=== PATIENT | female | born 1950 | race Caucasian/White ===

== ENCOUNTER 2018-11-07 11:52 | Day surgery (SDC) ==
[2018-11-04 11:35] LABS: HEMOGLOBIN 10.2 g/dL (12.0-16.0); MCH 29.7 PG (27-31); MCHC 31.9 g/dL (33-37); MCV 93.3 FL (81-99); MPV 11.5 FL (7.4-10.4); RBC 3.43 XMIL (4.2-5.4); RDW 14.1 % (11.5-14.5); WBC 8.15 X1000 (4.8-10.8)
[2018-11-04 11:44] LABS: INR 1.38; PROTIME 18.1 Seconds (11.0-16.0)
[2018-11-04 11:45] LABS: PTT 30.1 Seconds (22.3-41.8)
[2018-11-04 12:05] LABS: CALCIUM 8.8 mg/dL (8.8-10.2); CREATININE 1.3 mg/dL (0.5-0.9); POTASSIUM 4.6 mmol/L (3.5-5.1)
[2018-11-07] MEDS ORDERED: LR 500 ML ONE (12:19)
[2018-11-07] MEDS ORDERED: KEFZOL 1 GM/D5W 2 GM/100 ML IVPB ONE (12:19)
[2018-11-07] MEDS ORDERED: PEPCID ONE (12:19)
[2018-11-07] MEDS: REGLAN ONE ×2 (12:27→22:16)
[2018-11-07] MEDS ORDERED: DIPRIVAN 1% ONE (12:37)
[2018-11-07] MEDS ORDERED: QUELICIN (DOSE) ONE (12:37)
[2018-11-07] MEDS ORDERED: XYLOCAINE-MPF 2% ONE ×2 (12:37→14:11)
[2018-11-07] MEDS ORDERED: ROBINUL ONE ×2 (12:38→16:55)
[2018-11-07] MEDS ORDERED: NORCURON ONE (12:38)
[2018-11-07] MEDS ORDERED: AMIDATE ONE (14:12)
[2018-11-07] MEDS ORDERED: VENTOLIN HFA ONE (14:39)
[2018-11-07] MEDS ORDERED: EPHEDRINE ONE (15:02)
[2018-11-07] MEDS ORDERED: OFIRMEV 1000 MG/ISOTONIC SOLN 1,000 MG/100 ML BOTTLE ONE (15:43)
[2018-11-07] MEDS ORDERED: NS 1,000 ML ONE (17:41)
--- NOTE | 2018-11-07 17:44 | Diag Imaging Result Doc PS360 ---
EXAM: CHEST-PORTABLE INDICATION: s/p nephrolithotomy TECHNIQUE: One view COMPARISON: 06/04/2017 FINDINGS: The left chest port is in stable position. There are interstitial infiltrates at the mid and lower lung zones bilaterally suggesting interstitial edema. There is no discrete pleural fluid collection or pneumothorax. There are stable CABG changes. The cardiac silhouette is prominent suggesting cardiomegaly. IMPRESSION: Interstitial infiltrates bilaterally most consistent with pulmonary edema. Electronically signed by Erik Levin 11/07/2018 5:42 PM
[2018-11-07 18:01] LABS: BASO# 0.02 X1000 (0.0-0.2); BASO% 0.4 % (0.0-0.8); EOS# 0.12 X1000 (0.0-0.7); EOS% 2.2 % (0.0-10.0); HEMATOCRIT 29.2 % (37.0-47.0); HEMOGLOBIN 9.1 g/dL (12.0-16.0); LYMPH# 1.15 X1000 (1.2-3.4); LYMPH% 20.8 % (20.5-51.1); MCH 29.4 PG (27-31); MCHC 31.2 g/dL (33-37); MCV 94.5 FL (81-99); MONO# 0.45 X1000 (0.11-0.59); MONO% 8.1 % (1.7-9.3); MPV 10.6 FL (7.4-10.4); NEUT# 3.79 X1000 (1.4-6.5); NEUT% 68.5 % (42.2-75.2); PLT 181 X1000 (130-400); RBC 3.09 XMIL (4.2-5.4); RDW 14.2 % (11.5-14.5); WBC 5.53 X1000 (4.8-10.8)
[2018-11-07 18:09] LABS: CALCIUM 8.8 mg/dL (8.8-10.2); CREATININE 1.3 mg/dL (0.5-0.9); POTASSIUM 4.8 mmol/L (3.5-5.1)
[2018-11-07] MEDS ORDERED: MORPHINE IV PRN (19:01)
[2018-11-07] MEDS ORDERED: DITROPAN PO PRN (19:15)
[2018-11-07] MEDS ORDERED: DILAUDID IV PRN (19:15)
[2018-11-07] MEDS ORDERED: OFIRMEV 1000 MG/ISOTONIC SOLN 1,000 MG/100 ML BOTTLE IV PRN (19:15)
[2018-11-07] MEDS ORDERED: NORCO-7.5 PO PRN (19:15)
[2018-11-07] MEDS ORDERED: LABETALOL IV PRN (19:15)
[2018-11-07] MEDS ORDERED: NORCO-5 PO PRN (19:15)
[2018-11-07] MEDS ORDERED: PHENERGAN PO PRN (19:15)
[2018-11-07] MEDS ORDERED: ZOFRAN IV PRN (19:15)
[2018-11-07] MEDS ORDERED: PHENERGAN PR PRN (19:15)
[2018-11-07] MEDS ORDERED: PHENERGAN IV PRN (19:15)
[2018-11-07] MEDS ORDERED: SODIUM CHLORIDE 0.9% INJ PRN (19:15)
[2018-11-07] MEDS ORDERED: NORCO-10 PO PRN (19:15)
[2018-11-07] MEDS ORDERED: VENTOLIN HFA INH PRN (19:31)
[2018-11-07] MEDS ORDERED: TYLENOL ARTHRITIS PO PRN (19:31)
[2018-11-07] MEDS ORDERED: XANAX PO PRN (19:31)
[2018-11-07] MEDS ORDERED: LIORESAL PO PRN (19:31)
[2018-11-07] MEDS ORDERED: NITROGLYCERIN SL PRN (19:31)
[2018-11-07] MEDS ORDERED: LASIX PO SCH (19:45)
[2018-11-07] MEDS: CALTRATE 600 PO SCH (20:36)
[2018-11-07] MEDS: KLOR-CON PO SCH (20:36)
[2018-11-07] MEDS: COLACE PO SCH (20:36)
[2018-11-07] MEDS: PERIDEX MT SCH (20:37)
[2018-11-07] MEDS: LOPRESSOR PO SCH (20:37)
[2018-11-07] MEDS ORDERED: ALBUTEROL NEB INH SCH (21:00)
[2018-11-07] MEDS ORDERED: LIPITOR PO SCH (21:00)
[2018-11-07] MEDS: KEFZOL 2 GM/D5W 2 GM/50 ML IVPB IV SCH (22:15)
[2018-11-07] MEDS: NS 1,000 ML IV SCH (22:17)
[2018-11-07] MEDS ORDERED: KEFZOL 2 GM/D5W 2 GM/50 ML IVPB IV SCH ×2 (22:30)
[2018-11-08] MEDS: KEFZOL 2 GM/D5W 2 GM/50 ML IVPB IV SCH ×2 (06:33→14:24)
[2018-11-08 06:50] LABS: HEMOGLOBIN 8.2 g/dL (12.0-16.0); MCH 29.7 PG (27-31); MCHC 30.4 g/dL (33-37); MCV 97.8 FL (81-99); RBC 2.76 XMIL (4.2-5.4); RDW 14.7 % (11.5-14.5); WBC 10.19 X1000 (4.8-10.8)
[2018-11-08] MEDS ORDERED: SYNTHROID PO SCH (07:00)
[2018-11-08] MEDS ORDERED: PROTONIX PO SCH (07:00)
[2018-11-08 07:11] LABS: CREATININE 1.5 mg/dL (0.5-0.9); POTASSIUM 5.1 mmol/L (3.5-5.1)
[2018-11-08] MEDS: NS 1,000 ML IV SCH (08:26)
--- NOTE | 2018-11-08 08:27 | PROGRESS NOTE ---
DATE: 11/08/2018 SUBJECTIVE: Ms. Shi reports she had a decent night overnight. She has had a headache this morning. She also reports she has had some breakthrough pain after being given Minerva 5 mg. She currently denies nausea, vomiting fevers or chills. OBJECTIVE: Vital signs: T max was 101.4 degrees , pulse 81, blood pressure 128/58. General: No acute distress. HEENT: Normocephalic, atraumatic. Abdomen: Protuberant, nontender to palpation. Back: Mild left CVA tenderness. Genitourinary: Bladder is nontender to palpation. PERTINENT LABORATORY DATA: Her white cell count 10,000, hematocrit 27, creatinine is 1.5. IMAGING: Her chest x-ray yesterday in the recovery room showed no evidence of pneumothorax. ASSESSMENT AND PLAN: A 67-year-old female, postoperative day 1, status post left percutaneous nephrostolithotomy, antegrade percutaneous nephrostomy access, cystoscopy with left ureteral stent placement. I have discussed with the patient that her postoperative fever could be expected given her underlying pulmonary disease and likely release of bacteria from manipulation of the staghorn kidney stone. I have encouraged her to get out of bed and see how she tolerates breakfast and how well her pain is controlled. She states that she would like to go home if possible. PLAN: 1. SCDs for DVT prophylaxis. 2. Out of bed into the chair. Patient does not ambulate at home with exception to the bedroom and the dining room. 3. If she is afebrile and pain is under control, she will be discharged home. 4. She will go home with prescriptions for Minerva 7.5 p.r.n. (#15), Bactrim DS b.i.d. (#6). She was educated on the fact that Bactrim could interact with her Coumadin but she will not start her Coumadin until 11/10/2018 and Bactrim dose will be over on 11/11/2018. 5. Instructed her to restart her Plavix, aspirin and Coumadin on 11/10/2018. cc: MD BHAVYA Archuleta
[2018-11-08] MEDS: COLACE PO SCH (08:38)
[2018-11-08] MEDS: CALTRATE 600 PO SCH (08:38)
[2018-11-08] MEDS: LOPRESSOR PO SCH (08:38)
[2018-11-08] MEDS: PERIDEX MT SCH (08:38)
[2018-11-08] MEDS: KLOR-CON PO SCH (08:39)
[2018-11-08] MEDS ORDERED: PREDNISONE PO SCH (09:00)
[2018-11-08] MEDS ORDERED: BENEMID PO SCH (09:00)
[2018-11-08] MEDS ORDERED: LASIX PO SCH (09:00)
[2018-11-08] MEDS ORDERED: CELEXA PO SCH (09:00)
[2018-11-08] MEDS ORDERED: LYRICA PO SCH (09:00)
[2018-11-08 09:11] LABS: URINE SOURCE CLEAN CATCH
[2018-11-08 09:33] LABS: BILIRUBIN URINE NEGATIVE (NEGATIVE); BLOOD URINE LARGE (NEGATIVE); COLOR ORANGE; GLUCOSE URINE NEGATIVE (NEGATIVE); KETONE URINE NEGATIVE (NEGATIVE); LEUKOCYTES URINE LARGE (NEGATIVE); NITRITE URINE NEGATIVE (NEGATIVE); PROTEIN URINE 50 mg/dL (NEGATIVE); SP GRAVITY URINE 1.011; TURBIDITY URINE HAZY (CLEAR); UROBILINOGEN URINE NORMAL (NORMAL)
[2018-11-08 09:35] LABS: UR EPITHELIAL CELLS <10 /HPF (<10); URINE BACTERIA NEGATIVE /HPF; URINE RBC TNTC /HPF (<10); URINE WBC TNTC /HPF (<10)
[2018-11-08 12:13] VITALS: BP 98/42
--- NOTE | 2018-11-08 15:14 | OPERATIVE NOTE ---
PROCEDURE DATE: 11/07/2018 SURGEON: Dr. Garrett Sotomayor. PREOPERATIVE DIAGNOSIS: 1. Large right staghorn kidney stone ( over 2.5 cm). 2. Chronic urinary tract infections requiring hospitalizations, gross hematuria. 3. Morbid obesity. POSTOPERATIVE DIAGNOSIS: 1. Large left staghorn stone. 2. Chronic urinary tract infections. 3. Gross hematuria. 4. Morbid obesity with body mass index over 40. PROCEDURE NAME: Cystoscopy with placement of left ureteral catheter, percutaneous antegrade nephrostomy access, left percutaneous nephrostolithotomy of large staghorn stone using ultrasonic wand and stone basket, cystoscopy with placement of 6-Albanian, 20 cm left ureteral stent in a retrograde fashion. INDICATIONS: A 67-year-old female with multiple medical comorbidities including significant coronary artery disease, congestive heart failure, history myocardial infarction, lupus erythematous. She has developed recurrent urinary tract infections which require IV antibiotics and have resulted in hospitalization in the past. She underwent imaging which revealed left large staghorn calculus. She was seen by another urologist and given her multiple comorbidities was advised against definitive surgical intervention. Her family physician requested a second opinion and she was seen by me where I have explained to her that given her multiple medical comorbidities and use of multiple anticoagulants she is a high risk surgical candidate. The patient and her daughter voiced understanding and feel strongly about proceeding with percutaneous nephrostolithotomy of this staghorn kidney stone. FINDINGS: Successful percutaneous access was obtained by me into the lower pole calyx. The lower pole stone burden was addressed with ultrasonic wand. The upper pole stone burden was addressed with repeated stone extraction with the basket. The renal pelvis was not dilated. Adequate stent placement at the conclusion the case in a retrograde fashion. DESCRIPTION OF PROCEDURE: After obtaining informed consent patient brought to the operating room. General endotracheal anesthesia and perioperative antibiotics were administered. She was placed in a frog-leg position on the stretcher with the genitals prepped and draped in sterile fashion. A 16-Albanian flexible cystoscope was then used to gain access to the bladder which was briefly examined. She had no evidence of mucosal lesions, excessive trabeculations, diverticula noted. I was able to identify left ureteral orifice and introduced PTFE wire into the orifice. I then introduced a 5-Albanian open-end ureteral catheter over the wire after the cystoscope was retrieved. The flexible cystoscope was then introduced alongside of the open ended catheter to confirm its position in the ureter up to 15 cm omero. Following that the cystoscope was removed and 16-Albanian silicone Saul catheter was introduced with 10 mL of sterile water instilled in the bulb and ureteral catheter was secured to the Saul catheter with a 0 silk suture. The patient was then carefully placed in prone position with her upper and lower extremities as well as breasts padded. She was reprepped and draped in sterile fashion. Fluoroscopy was used in anterior posterior direction as well as 20 degree angle. Retrograde pyelogram was performed by instilling 50% diluted Omnipaque dye. It revealed fairly delicate caliceal system with dilation of the lower pole calyx and filling defects in the upper and lower poles consistent with a staghorn stone. She did not have significant hydronephrosis. There were no filling defects along the course of the ureter. I then used the finder needle after making a small stab incision in her back and under fluoroscopic guidance gain access to the lower pole of the kidney. It took several tries but eventually I was able to see return of straw-colored urine. I then introduced a Sensor wire via the finder needle and it coiled up in the lower pole calyx and renal pelvis. This was followed by dilation of the tract with 8, 10 and subsequently 12-Albanian dilators. This was followed by introduction of dual sheath catheter over the wire and eventual removal of the inner sheath allowing us to place a angled Glidewire alongside of the Sensor wire. I was able to manipulate the angled Glidewire into the renal pelvis in the ureter. I then used NephroMax occlusion balloon catheter and introduced it over the Sensor wire with the radiopaque tip at the entrance to the lower pole calyx. We then inflated the balloon to 14 cm of water with Omnipaque dye. I then carefully introduced 30-Albanian sheath over the balloon. This was followed by deflation of balloon and its removal. Rigid nephroscope was then introduced via the sheath with warm normal saline used as the irrigation fluid. I was able to access the lower pole calyx and the staghorn stone came into the view. Ultrasonic wand was then used to break the stone up into small fragments and retrieve them. Once the entire lower pole stone was addressed attention was turned toward the upper pole. Because her renal pelvis was not dilated it was difficult to advance rigid nephroscope into the pelvis and upper pole as well as due to her morbid obesity and angulation of the scope hence I switched to 16-Albanian flexible cystoscope and was able to identify her upper pole stone burden. Her stones were fairly soft consistent with a likely struvite composition. I then used 0 Nitinol basket and multiple passes were made removing the stone fragments. Eventually I was able to examine directly the entire upper pole and all the stones appeared to be removed. We then used flexible cystoscope and looked in renal pelvis, Interpolar calyx as well as low pole kendal. A few small fragments which were 3 to 4 to 5 mm were then retrieved with the basket. The field was inspected for hemostasis and appeared adequate. The cystoscope was introduced into the level of the ureteropelvic junction and the proximal ureter. There was no evidence of stone fragments remaining. Hence I removed the sheath and closed the wound with 4 interrupted 3-0 chromic sutures. The op site dressing was applied over the incision. She was then repositioned back into lithotomy position in stirrups. She was re-prepped again. 21-Albanian rigid cystoscope was introduced into the bladder after Saul catheter and ureteral catheter were removed. Sensor wire was used to advance it to level left renal pelvis which was identified on fluoroscopy. This was followed by introduction of 6-Albanian, 20 cm ureteral stent with the proximal coil position confirmed fluoroscopically and distal coil directly visualized. The string was detached from the stent. The bladder was emptied. Cystoscope was removed and a 16-Albanian Saul catheter was reinserted as patient wished to have catheter in postoperatively overnight. She was then extubated and taken to PACU for further recovery. ESTIMATED BLOOD LOSS: 100 mL. COMPLICATIONS: None. DISPOSITION: To PACU with chest x-ray and CBC and BMP and eventually floor for observation. DRAINS: A 6-Albanian, 20 cm ureteral stent, 16-Albanian silicone Saul catheter. cc: Garrett Sotomayor MD
[2018-12-08] MEDS ORDERED: BENADRYL PO SCH (19:45)
== END 2018-11-08 15:33 | disposition home or self-care (01) ==
LOC: OR 11:52 → INTOOBSV 17:25 → DIRADM 17:25 → 4N 18:14 → OR 11-08 15:33
PROVIDERS: ATTEND Urology
CPT/HCPCS: 71010; 71045; 76000; 80048; 81001; 82360; 85025; 85027; 85610; 85730; 87088; 88300; 94640; 94761; 94799; A9270; J0131; J0330; J0690; J2270; J7030; J7120; Q9966; Q9967

== ENCOUNTER 2018-12-25 14:33 | Inpatient (IN) ==
[2018-12-25] MEDS ORDERED: TYLENOL PO ONE (14:59)
[2018-12-25] MEDS ORDERED: BENADRYL PO ONE (14:59)
[2018-12-25] MEDS ORDERED: LASIX IV SCH (15:00)
[2018-12-25] MEDS ORDERED: VITAMIN K IM ONE (15:00)
--- NOTE | 2018-12-25 15:31 | Diag Imaging Result Doc PS360 ---
EXAM: CHEST-PORTABLE 12/25/2018 HISTORY: sob TECHNIQUE: AP portable at 1516 COMMENT: There is ill-defined opacity present in the right lower lobe which has not changed appreciably since 11/07/2018. The heart size is enlarged. This was not present on 06/04/2017. IMPRESSION: Persistent atelectasis or pneumonia right lower lobe. Cardiomegaly. Electronically signed by dEi Birmingham 12/25/2018 3:29 PM
[2018-12-25 15:42] LABS: INR 1.77
[2018-12-25 15:43] LABS: PTT 30.5 Seconds (22.3-41.8)
[2018-12-25 15:45] LABS: BASO# 0.03 X1000 (0.0-0.2); BASO% 0.4 % (0.0-0.8); EOS% 1.5 % (0.0-10.0); HEMATOCRIT 24.6 % (37.0-47.0); HEMOGLOBIN 7.5 g/dL (12.0-16.0); LYMPH# 0.99 X1000 (1.2-3.4); LYMPH% 14.8 % (20.5-51.1); MCHC 30.5 g/dL (33-37); MCV 85.1 FL (81-99); MONO# 0.68 X1000 (0.11-0.59); MONO% 10.2 % (1.7-9.3); MPV 11.3 FL (7.4-10.4); NEUT# 4.89 X1000 (1.4-6.5); NEUT% 73.1 % (42.2-75.2); PLT 199 X1000 (130-400); RBC 2.89 XMIL (4.2-5.4); RDW 14.9 % (11.5-14.5); WBC 6.69 X1000 (4.8-10.8)
[2018-12-25 16:10] LABS: ALB/GLOB RATIO 1.7; ALBUMIN 3.7 g/dL (3.5-5.0); CALCIUM 9.8 mg/dL (8.8-10.2); CREATININE 1.8 mg/dL (0.5-0.9); MAGNESIUM 1.2 mg/dL (1.5-2.7); POTASSIUM 4.4 mmol/L (3.5-5.1); TOTAL BILIRUBIN 0.26 mg/dL (0.20-1.00); TOTAL PROTEIN 5.9 g/dL (6.3-8.3)
--- NOTE | 2018-12-25 16:21 | PROVIDER DOCUMENTATION ---
This chart was entered by Valorie Taylor Scribe, acting as scribe for Nain Chambers MD. HPI-General Adult - General Chief Complaint: Abnormal Lab[s] Stated Complaint: ABNORMAL LABS Time Seen by Provider: 12/25/18 14:56 Source: patient Allergies/Adverse Reactions: Patient Allergies Allergy/AdvReac Type Severity Reaction Status Date / Time No Known Allergies Allergy Verified 11/04/18 10:14 Home Medications: Home Medication List Medication Instructions Recorded Confirmed Last Taken Type Alprazolam [Xanax] 0.5 mg PO HS PRN 04/08/12 11/07/18 10/20/18 10:00 History Furosemide 20 mg PO DIRECTED 04/08/12 11/07/18 11/06/18 09:00 History Pantoprazole Sodium [Protonix] 40 mg PO DAILY 04/08/12 11/07/18 01/07/18 10:00 History Calcium Carbonate [Calcium] 600 mg PO BID 01/17/14 11/07/18 11/06/18 08:00 History Atorvastatin Calcium [Lipitor] 20 mg PO QHS 05/02/15 11/07/18 11/06/18 21:00 History Cholecalciferol (Vit D3) [Vitamin 5,000 unit PO DAILY 05/02/15 11/07/18 11/06/18 09:00 History D] Levothyroxine [Synthroid] 75 microgm PO DAILY 05/02/15 11/07/18 11/06/18 09:00 History Nitroglycerin [Nitrostat] 0.4 mg SL PRN PRN 08/14/15 11/07/18 03/27/17 History Pregabalin [Lyrica] 75 mg PO DAILY 08/14/15 11/07/18 11/06/18 09:00 History Metoprolol [Lopressor] 50 mg PO BID #60 tablet 08/19/15 11/07/18 11/07/18 11:00 Rx Citalopram [Celexa] 20 mg PO DAILY 03/28/17 11/07/18 11/06/18 09:00 History Prednisone 2 tab PO DAILY 03/28/17 11/07/18 11/06/18 09:00 History Acetaminophen [Arthritis Pain 1 - 2 tab PO Q8H PRN PRN 11/01/1411/07/18 11/06/18 17:00 History Relief] Albuterol [Albuterol Neb] 2.5 mg INH HS 06/04/17 11/07/18 11/05/18 19:00 History Cyanocobalamin (Vitamin B-12) 1,000 mcg IJ Q30D 06/04/17 11/07/18 11/06/18 09:00 History [Cyanocobalamin Injection] Potassium Chloride [Klor-Con M20] 1 dose PO BID 12/24/17 11/07/18 11/07/18 09:00 History Albuterol Sulfate [Ventolin Hfa] 8 gm IH DAILY PRN 12/25/17 11/07/18 11/07/18 11:00 History Probenecid 250 mg PO DAILY 12/25/17 11/07/18 11/06/18 09:00 History Baclofen 10 mg PO PRN PRN 11/04/18 11/07/18 11/03/18 09:00 History Diphenhydramine [Benadryl] 25 mg PO Q30D 11/04/18 11/07/18 11/06/18 09:00 History Aspirin 81 mg PO DAILY #0 11/08/18 11/07/18 11/06/18 09:00 Rx Clopidogrel Bisulfate [Plavix] 75 mg PO DAILY #0 11/08/18 11/04/18 11/01/18 09:00 Rx Hydrocodone/Acetaminophen [Pontiac 1 ea PO TID PRN #15 tab 11/08/18 Unknown Rx 7.5-325 Tablet] Sulfamethoxazole/Trimethoprim 1 ea PO BID #6 tab 11/08/18 Unknown Rx [Bactrim Ds Tablet] Warfarin [Coumadin] 3.75 mg PO QHS #0 11/08/18 11/04/18 11/01/18 09:00 Rx - History of Present Illness -Gen Adult Nature of Presenting Problems: Patient is a 68 year old female who presents with abnormal labs. Patient's daughter states patient had routine blood work done in her PCP's office yesterday and was informed this morning that patient's H&H was low. Patient states shortness of breath and fatigue. Daughter states patient has had dark stool and coffee ground emesis intermittently for 6 months. Daughter states PCP did rectal exam yesterday and stool was positive for blood. Reports patient is on Plavix, Coumadin and aspirin. History of lymphoma. Location of Pain/Injury: reports: none Pain Radiation: reports: no radiation Quality of Pain: reports: none Severity: reports: mild Onset/Duration: reports: gradual Timing: reports: still present Associated Symptoms: reports: fatigue, shortness of breath Similar Symptoms Previously?: Yes Recently seen or treated by another doctor?: Yes Review of Systems - Adult - REVIEW OF SYSTEMS - ADULT Constitutional: reports: see HPI, fatique. denies: chills, fever Eyes: reports: no symptoms reported Ears, Nose, Mouth & Throat: reports: no symptoms reported Cardiovascular: reports: no symptoms reported Respiratory: reports: see HPI, shortness of breath. denies: cough, wheezing Gastrointestinal: reports: see HPI, rectal bleeding. denies: abdominal pain, diarrhea, nausea, vomiting Genitourinary: reports: no symptoms reported Musculoskeletal: reports: no symptoms reported Integumentary: reports: no symptoms reported Neurological: reports: no symptoms reported Psychiatric: reports: no symptoms reported Endocrine: reports: no symptoms reported Hematologic/Lymphatic: reports: no symptoms reported Allergic/Immunologic: reports: no symptoms reported All Other Systems: Reviewed and Negative Past History - Adult - PAST MEDICAL HISTORY-ADULT Review of Records: reports: Old Records Reviewed, Nursing Assessment Review, Medications Reviewed, Social history reviewed & non-contributory. Major Childhood Illnesses: reports: denies history Cardiovascular: reports: CHF, HTN, [place] Respiratory: reports: asthma, COPD Gastrointestinal: reports: other Obstetrical/Gynecological: reports: denies history Genitourinary: reports: kidney disease, chronic UTI's Musculoskeletal: reports: denies history Neurological: reports: denies history Psychiatric: reports: denies history Endocrine/Immune: reports: Lymphoma, thyroid disorder Other Conditions: reports: denies history - PRIOR SURGERIES/PROCEDURES Surgical/Procedure History: reports: cardiac stent, hysterectomy, joint replacement (L hip replacement) - PRIOR HOSPITALIZATIONS Prior Hospitalizations: reports: for similar symptoms - IMMUNIZATION STATUS Childhood Immunizations: See Nurse Assessment Flu Vaccine: See Nurse Assessment - FAMILY HISTORY Family History: reviewed, not pertinent - SOCIAL HISTORY Smoking: cigarettes (former) Substance Use: denies Living Situation: family Physical Exam-General - PHYSICAL EXAM-ADULT Initial Vital Signs Reviewed: Yes - CONSTITUTIONAL General Appearance: alert, no apparent distress. negative: lethargic, slow to respond - EYES Eyes: pale conjunctivae. negative: pink conjunctivae, scleral icterus - RESPIRATORY Respiratory: chest non-tender, lungs clear, normal breath sounds, other (port to left side chest). negative: crackles, rhonchi, stridor - CARDIOVASCULAR Cardiovascular: normal peripheral pulses, regular rate, rhythm. negative: tachycardia, systolic murmur - GASTROINTESTINAL (ABDOMEN) Abdominal Exam: normal bowel sounds, non tender, soft. negative: guarding, rebound - GENITOURINARY Rectal Exam: deferred - MUSCULOSKELETAL Extremity: non-tender, normal inspection. negative: deformity, erythema - SKIN Integumentary: normal turgor, warm/dry, pallor. negative: cyanosis, ecchymosis, erythema, rash - NEUROLOGIC Neurologic: grossly normal. negative: aphasia, facial droop - PSYCHIATRIC Psych/Mental Status: normal mood/affect, oriented x 3. negative: anxious Progress - PLAN OF CARE/RESULTS Progress/Plan/Lab Results: Vital Signs - 8 hr 12/25/18 14:41 Temperature 97.7 F Pulse Rate 71 Respiratory Rate 20 Blood Pressure 97/58 O2 Sat by Pulse Oximetry 94 L Result Diagrams: 12/25/18 15:10 12/25/18 15:10 - REASSESSMENT Reassessment #1 Time Reassessed: 16:19 Status: unchanged (GIven IVF, T&C for 2U pRBCs, IV protonix ordered.) - EKG 1 Time of EKG reading by physician:: 16:07 EKG Read and Signed by:: Nain Chambers EKG Interpretation (*Must complete 3 of following elements*): Abnormal Rate: 73 Rhythm: normal sinus rhythm [place]: left QRS: RBB, other (low voltage) [place] Interval: normal Comments: inferior infarct, age undetermined - XRAY 1 XRAY Study: Chest Impression: See EMR Report ( EXAM: CHEST-PORTABLE 12/25/2018 HISTORY: sob T ECHNIQUE: AP portable at 1516 COMMENT: There is ill-defined opacity present in the right lower lobe which has not changed appreciably since 11/07/2018. The heart size is enlarged. This was not present on 06/04/2017. IMPRESSION: Persistent atelectasis or pneumonia right lower lobe. Cardiomegaly. Electronically signed by Edi Birmingham 12/25/2018 3:29 PM 12/25/18 1529 Interpreting Physician: Edi Birmingham MD Dictated Date/Time: 12/25/18 1527 cc: Nain Chambers MD; Abad Pena MD) - CONSULTS/PCP/HOSPITALIST Notification #1 *Consult/PCP/Hospitalist*: SNEHA Rodriguez for Hospitalist Time Discussed: 16:17 (Dr. Weathers accepted admit) Reason/Comments: Dr. Chambers consulted with Jennifer about patient. Consult Disposition: Will see in ED, Admit Departure - Departure Date of Disposition Decision: 12/25/18 Time of Disposition Decision: 16:18 DIAGNOSIS: Dyspnea on exertion GI bleeding Qualifiers: GI bleed type/associated pathology: gastric ulcer Qualified Code(s): K25.4 - Chronic or unspecified gastric ulcer with hemorrhage Anemia Qualifiers: Anemia type: iron deficiency Iron deficiency anemia type: chronic blood loss Qualified Code(s): D50.0 - Iron deficiency anemia secondary to blood loss (chronic) Disposition: ADMITTED INPATIENT 09 Certified Medical Emergency: Emergent Condition: Fair Referrals and Follow-Ups: Abad Pena MD [Primary Care Provider] - - Critical Care Note This patient required my direct & personal management of CC.: No Attestation - Physician/ SHAAN Attestation Patient care was provided by Advanced Practice Provider:: No The physician spent face to face time with patient:: Yes Advanced Practice Provider documentation review:: Supervising physician onsite and consulted in the evaluation and care of this patient. The physician did have a face to face encounter with the patient. This chart was documented by the indicated scribe, (Valorie Taylor Scribe) and accurately reflects the services I performed and decisions made by me, Nain Chambers MD, as attested by the provider's signature.
--- NOTE | 2018-12-25 16:27 | EKG Report ---
Test Performed on : 12/25/2018 4:07:08 PM Test Reason : sob Blood Pressure : / mmHG Vent. Rate : 073 BPM Atrial Rate : 073 BPM P-R Int : 188 ms QRS Dur : 120 ms QT Int : 438 ms P-R-T Axes : 043 -53 -04 degrees QTc Int : 482 ms Normal sinus rhythm. Left axis deviation Low voltage QRS Right bundle branch block Inferior infarct (cited on or before 28-MAR-2017) Abnormal ECG When compared with ECG of 05-JUN-2017 09:58, Borderline criteria for Anterior infarct are no longer present Borderline criteria for Anterolateral infarct are no longer present Nonspecific T wave abnormality now evident in Anterior leads Unconfirmed Result
[2018-12-25] MEDS ORDERED: PROTONIX 80 MG in NS 80 ML IV ONE (16:30)
[2018-12-25 16:33] LABS: URINE SOURCE CATH
[2018-12-25 16:36] LABS: BILIRUBIN URINE NEGATIVE (NEGATIVE); BLOOD URINE NEGATIVE (NEGATIVE); COLOR STRAW; GLUCOSE URINE NEGATIVE (NEGATIVE); KETONE URINE NEGATIVE (NEGATIVE); LEUKOCYTES URINE MODERATE (NEGATIVE); NITRITE URINE NEGATIVE (NEGATIVE); PH URINE 5.5; PROTEIN URINE NEGATIVE (NEGATIVE); SP GRAVITY URINE 1.004; TURBIDITY URINE CLEAR (CLEAR); UROBILINOGEN URINE NORMAL (NORMAL)
[2018-12-25 16:37] LABS: UR EPITHELIAL CELLS <10 /HPF (<10); URINE BACTERIA NEGATIVE /HPF; URINE RBC <10 /HPF (<10); URINE WBC <10 /HPF (<10)
[2018-12-25] MEDS ORDERED: NS 500 ML ONE (16:48)
[2018-12-25] MEDS ORDERED: ZOFRAN IV PRN (17:36)
[2018-12-25] MEDS ORDERED: MAGNESIUM SULFATE 2 GM/S.W.I. 2 GM/50 ML IVPB IV ONE (17:36)
[2018-12-25] MEDS ORDERED: NS 1,000 ML IV ONE (17:36)
--- NOTE | 2018-12-25 17:58 | HISTORY AND PHYSICAL ---
PRIMARY CARE PROVIDER: Dr. Pena. CERTIFIED TUMOR REGISTRAR: Dr. Burleson. CHIEF COMPLAINT: Abnormal labs. HISTORY OF PRESENT ILLNESS: Ms. Shi is a 68-year-old female who carries a past medical history of ischemic cardiomyopathy, IA x 2, two stents placed a year ago, two stents placed 7 to 10 years ago, lupus, hypertension, dyslipidemia, chronic back pain, anxiety disorder, anemia, diffuse large B-cell lymphoma status post chemotherapy, vitamin B12 deficiency, celiac disease, diverticulitis, gouty arthritis, GERD, osteopenia, chronic urinary tract infections, recent kidney stones, where she had a lithotripsy with Dr. Sotomayor last month. She is supposed to be on supplemental O2 for her heart failure; however, she has been noncompliant over the past month and only wears it p.r.n. She has a left-sided port on her chest for IVIG infusions. She does report over the last month intermittently she has had bright red blood and then started having blood clots as well as some reported coffee-ground looking stools. She has had nose bleeds over the last month, as well as a small amount of blood in her sputum. She also reports dark tarry stools, an increase in weakness as well as increased work of breathing with exertion. In the ED, she was found to have a PT of 22, hemoglobin and hematocrit of [address] Pena is office it was 6.9 and 22, acute kidney injury on chronic kidney disease. She had marginal blood pressures in the 90s upon arrival. She is currently waiting to receive a transfusion of blood. She was given vitamin K. We will place her in the ICU and monitor closely overnight and check a CT of the abdomen and pelvis to rule out any diverticulitis that she reports a history. PAST MEDICAL HISTORY: 1. Ischemic cardiomyopathy. 2. Two MIs in the past, one was one year ago where she received two stents, one was 7 to 10 years ago where she received two stents. 3. Lupus. 4. Hypertension. 5. Dyslipidemia. 6. Chronic back pain. 7. Anxiety disorder. 8. Anemia. 9. Diffuse large B-cell lymphoma status post chemotherapy. 10. Vitamin B12 deficiency. 11. Celiac disease. 12. Diverticulitis. 13. Gouty arthritis. 14. GERD. 15. Osteopenia. 16. IgG deficiency with a left-sided port. 17. Recurrent UTIs for which she is on low-dose Levaquin. PAST SURGICAL HISTORY: 1. Right total hip arthroplasty. 2. Bilateral cataract surgery. 3. Cardiac stents x 4 one year ago, one 7 to 10 years ago. 4. Recent left-sided lithotripsy with Dr. Sotomayor. SOCIAL HISTORY: The patient was a 2 pack per day smoker, but quit in early 1999. No alcohol or illicit drug use. She lives with her daughter. FAMILY HISTORY: Colon cancer, breast cancer, alcoholism, osteoporosis, lung cancer, hypertension and dyslipidemia. ALLERGIES: No known drug allergies. CURRENT HOME MEDICATIONS: Have not been verified. REVIEW OF SYSTEMS: Twelve-point review of systems completely negative except for those mentioned in HPI. She denies any fever, any chills, any chest pain. No syncopal episodes. PHYSICAL EXAMINATION: VITAL SIGNS: Temperature is 97.7, heart rate 71, respirations 20, blood pressure 97/58, O2 is 94% on room air. GENERAL: Ms. Shi is a feisty 68-year-old female who is lying on the stretcher, very pale appearing, in no acute distress. HEENT: Atraumatic, normocephalic. PERRL. Mucous membranes are dry, pale. CARDIOVASCULAR: S1, S2 appreciated. No murmurs, gallops, rubs noted. RESPIRATORY: Lung sounds clear bilaterally, bilaterally decreased in the bases. GASTROINTESTINAL: Soft, mildly tender throughout the lower quadrants. Positive bowel sounds 4 quads. EXTREMITIES: Lower extremities were negative for edema. Did note some venous insufficiency, appears to be varicose veins. NEUROLOGIC: No focal deficits noted. DIAGNOSTIC DATA: Chest x-ray shows persistent atelectasis and/or pneumonia in the right lower lobe, cardiomegaly. LABORATORY DATA: White count 6, hemoglobin and hematocrit 7.5 and 24, platelet count is 199,000. PT was 22, INR 1.7, PTT 30.5. Chemistry: Sodium 145, potassium 4.4, BUN 14, creatinine 1.8, blood glucose is 118, magnesium 1.2. ProBNP was 33 74. ASSESSMENT AND PLAN: 1. GI bleed. Elevated PT. Patient was given vitamin K in the ED. We will initiate a unit of blood and start her on a Protonix drip. Consult Dr. Burleson with Gastroenterology. Will check a CT of the abdomen and pelvis. The patient reports a history of diverticulitis. We will monitor her overnight in the ICU given her marginal pressures and await Dr. Burleson's input. 2. Congestive heart failure history. The patient does not appear to be any exacerbation. She does have elevated proBNP, so we will gently give her hydration for her acute kidney injury and watch her closely with giving blood. Will give it over 4 hours. 3. Acute kidney injury on chronic kidney disease. We will gently hydrate her. 4. Coronary artery disease status post two MIs in the past, the most recent one being a year ago where she received two stents. 5. Recent left-sided kidney stone with horndonavon, status post lithotripsy with Dr. Sotomayor. 6. Recent nose bleeds as well as a small amount of trace blood in her sputum that she coughs up. 7. Hypomagnesemia. We will recheck her magnesium in the a.m. 8. Ischemic cardiomyopathy, aware. 9. Diffuse large cell B-cell lymphoma status post chemotherapy. Patient is currently in remission. 10. IgG deficiency. The patient receives IVIG infusions by Dr. Camilla Mccoy. 11. Anxiety disorder. 12. Frequent urinary tract infections, on low-dose Levaquin at home. We will check a urine culture. 13. Further recommendation to follow physician evaluation, laboratory and diagnostic data. Dictated by SNEHA Chapman for Kiel Weathers MD cc: MD Abad Gaffney MD Khurshid Yousuf, MD I have seen and examined Ms Shi today. She presents with complains of coffee ground emesis and melena. Her Hemoglobin has been low on outpatient workup and was referred to come to the hospital. I have reviewed her labs and imagine studies. She is currently hypotensive so she will be admitted into the ICU overnight. I agree with the above HPI and the plan reflects my opinion discussed with the [employer]. KRYSTINA LATIF
[2018-12-25] MEDS ORDERED: NS 250 ML ONE (18:12)
--- NOTE | 2018-12-25 20:16 | Diag Imaging Result Doc PS360 ---
EXAM: CT ABDOMEN/PELVIS W/O CONTRAST 12/25/2018 HISTORY: GI Bleed h/o diverticulitis TECHNIQUE: This exam was performed using automated exposure control, adjustment of mA or kV according to patient size, and/or use of iterative reconstruction technique. COMMENT: There are subpleural interstitial type opacities seen on the first through fifth images of the right lower lobe. This portion of the chest was not included on the previous examination of 12/12/2017 but was not present on the previous study of 01/18/2014. This may represent a focus of pneumonitis. Clinical correlation is recommended. There are coronary calcifications. There are granulomata present in the spleen. There is extensive atherosclerotic calcifications in the aorta and its branches. There is minimal dilatation of the infrarenal abdominal aorta to a maximum AP diameter of 2.4 cm. There is no evidence of hydronephrosis. There is bilateral nephrolithiasis with at least two stones in the lower pole of the left kidney measuring over 4 mm and a 3 mm sized stone in the lower pole on the right. There is some perinephric stranding over the lower pole of the left kidney posteriorly. There is a cortical cyst in the upper pole of the left kidney measuring 4.8 cm. The gallbladder is clear. There is no evidence of bowel obstruction. There is diverticulosis in the distal descending colon. There is no evidence of free fluid or free air. There is a hip prosthesis on the right. There are degenerative disc changes in the lumbar spine. IMPRESSION: Bilateral nephrolithiasis. Diverticulosis coli. Electronically signed by Edi Birmingham 12/25/2018 8:14 PM
[2018-12-25] MEDS ORDERED: LASIX IV PRN (20:50)
[2018-12-25 21:03] LABS: HEMATOCRIT 33.1 % (37.0-47.0); HEMOGLOBIN 10.5 g/dL (12.0-16.0)
[2018-12-26] MEDS ORDERED: PROTONIX 80 MG in NS 80 ML IV SCH (03:00)
[2018-12-26 05:20] LABS: BASO# 0.02 X1000 (0.0-0.2); BASO% 0.4 % (0.0-0.8); EOS# 0.21 X1000 (0.0-0.7); HEMOGLOBIN 9.7 g/dL (12.0-16.0); LYMPH# 1.16 X1000 (1.2-3.4); LYMPH% 21.9 % (20.5-51.1); MCH 25.6 PG (27-31); MCHC 31.3 g/dL (33-37); MCV 81.8 FL (81-99); MONO# 0.63 X1000 (0.11-0.59); MONO% 11.9 % (1.7-9.3); MPV 11.4 FL (7.4-10.4); NEUT# 3.28 X1000 (1.4-6.5); NEUT% 61.8 % (42.2-75.2); PLT 180 X1000 (130-400); RBC 3.79 XMIL (4.2-5.4); RDW 15.9 % (11.5-14.5)
[2018-12-26 05:50] LABS: INR 1.6; PROTIME 20.2 Seconds (11.0-16.0)
[2018-12-26 05:56] LABS: PTT 28.9 Seconds (22.3-41.8)
[2018-12-26 06:12] LABS: ALB/GLOB RATIO 1.9; ALBUMIN 3.9 g/dL (3.5-5.0); CALCIUM 9.5 mg/dL (8.8-10.2); CREATININE 1.8 mg/dL (0.5-0.9); MAGNESIUM 1.6 mg/dL (1.5-2.7); POTASSIUM 3.8 mmol/L (3.5-5.1); TOTAL BILIRUBIN 0.54 mg/dL (0.20-1.00)
[2018-12-26 06:13] LABS: IRON SATURATION 23 %; TIBC 372 ug/dL; TOTAL IRON 85 ug/dL (49-151); UNBOUND IRON 287 ug/dL (112-346)
--- NOTE | 2018-12-26 07:12 | Diag Imaging Result Doc PS360 ---
EXAM: CHEST-PORTABLE 12/26/2018 HISTORY: fu TECHNIQUE: AP portable at 0541 COMMENT: Compared to 12/25/2018 there has been some improvement in the right lower lobe opacities which were present. No new abnormalities are present. IMPRESSION: Improved right lower lobe pneumonia. Electronically signed by Edi Birmingham 12/26/2018 7:10 AM
[2018-12-26] MEDS ORDERED: SODIUM CHLORIDE 0.9% INJ SCH (08:30)
[2018-12-26] MEDS ORDERED: PROTONIX IV SCH (08:30)
--- NOTE | 2018-12-26 09:19 | PROGRESS NOTE ---
DATE: 12/26/2018 SUBJECTIVE: This morning, Ms. Shi refers to be feeling a whole lot better, feeling stronger. No more nausea, no vomiting, no coffee-grounds emesis. Has not had any bowel movement. Ms. Shi got 2 units of PRBC transfusion yesterday. OBJECTIVE: Vital Signs: Current vitals are blood pressure 127/74, pulse of 73, respirations 18, temperature 98.1 degrees. General: Ms. Shi is a 68-year-old female. She is in bed. No distress. HEENT: Mucosa is pink and moist. Anicteric. Acyanotic. Neck: Supple. Chest: Good air entry bilaterally. No crepitations. No rhonchi. Cardiovascular: Regular rate and rhythm. No murmurs, no rubs, no gallops. There is an old sternotomy scar on the anterior chest wall. Abdomen: Soft, distended but nontender. No fluid shift. Extremities: No pedal edema. Neurologic: The patient is awake, alert, and oriented x4. There are no focal neurological deficits. LABORATORY DATA: Hemoglobin is 9.7. Rest of CBC is normal. Chemistry is also unremarkable except for creatinine of 1.8, which seems to be the patient's baseline. IMAGING STUDIES: A CT scan of the abdomen and pelvis did show bilateral nephrolithiasis and diverticulosis coli but no acute inflammation. ASSESSMENT: 1. Coffee-ground emesis with melena stool consistent with gastrointestinal bleed. The patient is currently on proton pump inhibitor therapy and we are pending Gastroenterology evaluation. 2. Anemia secondary to acute blood loss. The patient is status post 2 PRBC transfusion. Hemoglobin and hematocrit are fairly stable. The patient does not have any more ongoing blood losses. 3. Hypotension on presentation secondary to hypovolemia, improved. 4. Acute on chronic kidney failure. We will continue with the gentle IV fluids. 5. History of diffuse large B-cell lymphoma, status post chemotherapy. 6. History of coronary artery disease status post multiple stents noted. 7. Triple antithrombotic therapy. The patient is on Plavix and aspirin most likely because of her coronary stents and coronary artery disease. She has been also on Coumadin for over 10 years now because of a deep venous thrombosis and pulmonary embolism after a right hip surgery. She is not able to tell me if there is any other indication for her to be on this long-term anticoagulant therapy. I think for now it is however safe to discontinue that and let her primary care doctor re-evaluate the need for anticoagulant on an outpatient basis. We think the triple antithrombotic therapy is probably the cause of his gastrointestinal bleed. 8. History of lupus. The patient follows up with Dr. Manley. 9. Iron deficiency. This has been replaced with 2 PRBC transfusion. So in general, Ms. Shi is now more hemodynamically stable. Blood pressure is stabilized and patient's hemoglobin and hematocrit are also stable, and she is not having ongoing acute blood losses. She is going to be transferred from the ICU to regular medical floor where she will still be NPO until she is seen by Gastroenterology and a decision is made if she would benefit from endoscopy. cc: Kiel Weathers MD MTDD
[2018-12-26 12:02] LABS: INR 1.41; PROTIME 18.3 Seconds (11.0-16.0)
[2018-12-26] MEDS ORDERED: XYLOCAINE-MPF 2% ONE (14:35)
[2018-12-26] MEDS ORDERED: DIPRIVAN 1% ONE (14:36)
--- NOTE | 2018-12-26 15:17 | ENDOSCOPY OPERATIVE NOTE ---
[facility] ENDOSCOPY OPERATIVE NOTE , PATIENT: Olegario Shi ADMISSION DATE: 12/26/2018 MR#: [id number] : 1950 EGD PROCEDURE REPORT PROCEDURE DATE: 12/26/2018 SURGEON: Michele Burleson MD STATUS: inpatient [place] REPORT DEVELOPER: Nadira Melendez and Kalia Mora PREOPERATIVE DIAGNOSIS: The patient is a 68 yr old female here for an EGD due to acute post hemorrha gic anemia and melena. PROCEDURE PERFORMED: EGD, diagnostic MEDICATIONS: Per Anesthesia TOPICAL ANESTHETIC: none CONSENT: The patient understands the risks and benefits of the procedure and understands that these r isks include, but are not limited to: sedation, allergic reaction, infection, perforation and/or bleeding. Alternative means of evaluation and treatment include, among others: physical exam, x-rays, and/or surgical intervention. The patient elects to proceed with this endoscopic procedure. HISORY AND PHYSICAL: 12/26/2018 function. Hand hygiene and appropriate measures for infection prevention was taken. After the risks, benefits and alternatives of the procedure were thoroughly explained, Informed consent was verified, confirmed and timeout was successfully executed by the treatment team. The patient was anesthetized with topical anesthesia and the HQ42-e10 ([id number]) endoscope was introduced through the mouth and advanced to the second portion of the duoden um. Retroflexion was performed in the stomach and revealed no abnormalities. The gastroscope was then slowly withdraw n and removed. ESOPHAGUS: The mucosa of the esophagus appeared normal. There was no evidence of AVM, ulcer, tumor or varices. STOMACH: Moderate gastritis (inflammation) was found in the gastric antrum. There was no evidence o f AVM, ulcer, tumor or masses. No active bleeding or stigmata of recent bleed noted. DUODENUM: The duodenal mucosa showed no abnormalities. SPECIMENS REMOVED: No ADVERSE EVENTS: There were no complications. POSTOPERATIVE DIAGNOSIS: 1. The mucosa of the esophagus appeared normal 2. Gastritis (inflammation) was found in the gastric antrum 3. The duodenal mucosa showed no abnormalities RECOMMENDATIONS: 1. Resume pre-procedure medications 2. Resume previous diet 3. Avoid non-steroid anti-inflammatory drugs 4. Return to floor when standard parameters are met REPEAT EXAM: Michele Burleson MD eSigned: Michele Burleson MD 12/26/2018 3:17 PM cc: PATIENT NAME: Olegario Shi MR#: [id number]
--- NOTE | 2018-12-26 19:19 | GASTROENTEROLOGY CONSULTATION ---
DATE: 12/26/2018 REASON FOR CONSULTATION: Anemia, GI bleed. HISTORY OF PRESENT ILLNESS: This is a 68-year-old female, known to our practice. Patient had presented with episodes of bleeding. Patient states she had followed with Dr. Pena on Saturday with some blood work and Hemoccult test. They had called her yesterday and told her she was severely anemic and needed to go to the emergency room for further evaluation. The patient states she has noted blood or black stools reported as coffee-ground over the last 3 to 4 days. She states that occurs periodically. She has had workup in the past for anemia. Dr. Burleson did an EGD on 12/25/2017 that was normal. She had a colonoscopy on 01/08/2018 that showed diverticulosis. She had a small bowel followthrough on 01/09/2018 that was normal. The patient reports some lower abdominal pain. She was in the hospital in October and had hematuria and was evaluated by Dr. Sotomayor and had a urology procedure for a large kidney stone. Patient does take Coumadin, Plavix and aspirin. She has a history of cardiovascular stents, a history of DVT and PE. She states her last Coumadin dose was Saturday evening. Last Plavix and aspirin was morning before her admission. Currently patient states she feels a little better. PAST MEDICAL HISTORY: Ischemic cardiomyopathy, history of myocardial infarctions with history of cardiovascular stent, lupus, hypertension, dyslipidemia, chronic back pain, anxiety, history of anemia, diffuse large B-cell lymphoma status post chemotherapy, history of celiac disease, history of diverticulosis/diverticulitis, arthritis,GERD, osteopenia, IgG deficiency, has a port for infusions. PAST SURGICAL HISTORY: Right total hip arthroplasty, bilateral cataract surgery, cardiovascular stents, recent left side lithotripsy with Dr. Sotomayor. ALLERGIES: No known drug allergies. HOME MEDICATIONS: Tylenol every 8 hours as needed, Ventolin inhaler daily, nebulizer 2.5 mg inhaler at night, Xanax 0.5 mg every night as needed, aspirin 81 mg daily, Lipitor 20 mg every night, baclofen 10 mg as needed, calcium 600 twice a day, vitamin D 5000 units daily, Celexa 20 mg daily, Plavix 75 mg daily, vitamin B 12 every 30 days, Benadryl 25 mg every 30 days, Lasix 20 mg as needed, Synthroid 75 mcg daily, Lopressor 50 mg twice a day, Nitrostat 0.4 mg sublingual as needed, Protonix 40 mg daily, Klor-Con 1 dose twice daily, prednisone 2 tablets daily, Lyrica 75 mg daily, Coumadin 3.7 mg every night. SOCIAL HISTORY: History of tobacco use quit in 1999. No reported alcohol use. She lives with her daughter. FAMILY HISTORY: Positive for colon cancer, breast cancer, alcoholism, osteoporosis, lung cancer, hypertension and dyslipidemia. REVIEW OF SYSTEMS: Per history of present illness. PHYSICAL EXAMINATION: Vital Signs: Temperature 98.1 degrees, pulse 84, respirations 20, blood pressure 115/75. General: Patient is awake, alert, no acute distress. Initially seen the patient when she was in the ICU 16. She has been since moved to 3rd floor. I have seen her again and discussed plan. HEENT: Normocephalic, atraumatic. Pupils equal, round, reactive to light. Sclerae nonicteric. Cardiovascular: Regular rate and rhythm. Respiratory: Lung sounds essentially clear. Abdomen: Soft. Some mild tenderness in the lower abdomen more significant on the left side. Extremities: No lower extremity edema noted. Neurological: Cranial nerves 2-12 grossly intact. Patient is awake, alert, oriented to person, place, and time. DIAGNOSTIC RESULTS: Laboratory. Hematology. WBC 5.30, on admission her hemoglobin was 7.5, hematocrit 24.6, the patient received 2 units of packed red blood cells, current hemoglobin and hematocrit 9.7, 31.0. Coagulation, pro time 18.3, INR 1.41, PTT 28.9. Chemistry. Sodium 144, potassium 3.8, chloride 102, CO2 29, BUN 17, creatinine 1.8, glucose 91, calcium 9.5, magnesium 1.6, iron 85, percent saturation 23, ferritin 16, total bilirubin 0.54, AST 16, ALT 7, alkaline phosphatase 93, folate greater than 40. Abdominal pelvis CT scan showing bilateral nephrolithiasis and diverticulosis. ASSESSMENT AND PLAN: 1. Recent melena. 2. Anemia requiring blood transfusions. 3. Recent urology procedure for kidney stone. 4. Coronary artery disease and history of deep vein thrombosis/pulmonary embolism on triple anti- thrombolytic therapy. Patient takes Plavix, aspirin and Coumadin, those are currently on hold. Continue to monitor for further active bleeding. Transfuse packed red blood cells as needed. Monitor hemoglobin and hematocrit. We have done evaluation EGD, colonoscopy and small-bowel followthrough approximately a year ago for her anemia. Due to her recurrent bleeding and requiring blood transfusion we will repeat EGD. Further plans will be made according to findings. I have discussed EGD procedure with the patient along with benefits and risks and she wishes to proceed. I have discussed this case with Dr. Burleson. Further plans to be made according to findings. Thank you for this consult. Dictated by SNEHA Yoder for Michele Burleson MD cc: SNEHA Henry MD
[2018-12-26] MEDS: NORCO-5 PO PRN (22:01)
[2018-12-26] MEDS ORDERED: XANAX PO PRN (22:35)
[2018-12-26] MEDS ORDERED: DUONEB (A & A) INH PRN (22:36)
[2018-12-27] MEDS ORDERED: PRILOSEC PO SCH (07:00)
[2018-12-27 07:32] LABS: BASO# 0.02 X1000 (0.0-0.2); BASO% 0.4 % (0.0-0.8); EOS# 0.23 X1000 (0.0-0.7); EOS% 4.8 % (0.0-10.0); HEMATOCRIT 32.2 % (37.0-47.0); LYMPH# 1.26 X1000 (1.2-3.4); LYMPH% 26.3 % (20.5-51.1); MCH 25.7 PG (27-31); MCHC 31.1 g/dL (33-37); MCV 82.8 FL (81-99); MONO% 12.5 % (1.7-9.3); MPV 11.2 FL (7.4-10.4); NEUT# 2.68 X1000 (1.4-6.5); PLT 179 X1000 (130-400); RBC 3.89 XMIL (4.2-5.4); RDW 15.8 % (11.5-14.5); WBC 4.79 X1000 (4.8-10.8)
[2018-12-27 08:05] VITALS: BP 125/61
[2018-12-27 08:06] LABS: ALB/GLOB RATIO 1.8; ALBUMIN 3.6 g/dL (3.5-5.0); CALCIUM 8.2 mg/dL (8.8-10.2); CREATININE 1.4 mg/dL (0.5-0.9); POTASSIUM 3.6 mmol/L (3.5-5.1); TOTAL BILIRUBIN 0.32 mg/dL (0.20-1.00); TOTAL PROTEIN 5.6 g/dL (6.3-8.3)
[2018-12-27] MEDS: NORCO-5 PO PRN (10:53)
--- NOTE | 2018-12-27 21:04 | DISCHARGE SUMMARY ---
ADMISSION DATE: 12/25/2018 DISCHARGE DATE: 12/27/2018 DISPOSITION: To home. FOLLOW-UP: 1. With patient's PCP, Dr. Pena. 2. With Dr. Burleson. INVESTIGATIVE PROCEDURES DURING ADMISSION: EGD was done by Dr. Burleson. IMAGING STUDIES OF SIGNIFICANCE: A chest x-ray showed persistent atelectasis or pneumonia, right lower lobe and cardiomegaly. A CT scan of the abdomen and pelvis without contrast showed bilateral nephrolithiasis and diverticulosis coli. A repeat chest x-ray show improved right lower lobe pneumonia/atelectasis. DIAGNOSES AT TIME OF ADMISSION: 1. Gastrointestinal bleed. 2. Congestive heart failure. 3. Acute kidney injury. 4. Coronary artery disease. DIAGNOSIS AT TIME OF DISCHARGE: 1. Coffee-grounds emesis with melena stool consistent with gastrointestinal bleed. Esophagogastroduodenoscopy was done, which was unremarkable. The patient was given a 2-unit packed red blood cell transfusion. We think it was a gastrointestinal bleed as a result of triple antithrombotic therapy (aspirin, Plavix, and Coumadin). 2. Anemia secondary to acute blood loss. The patient was given a 2-unit packed red blood cell transfusion. Hemoglobin and hematocrit are stable. 3. Hypotension on presentation secondary to hypovolemia, improved. 4. Acute on chronic kidney failure. Creatinine is back to baseline. 5. History of diffuse large B-cell lymphoma. 6. History of coronary artery disease, status post multiple stents. 7. Triple antithrombotic therapy. Coumadin has been withheld. 8. History of lupus. Patient follows up with Dr. Manley. 9. Iron deficiency, replaced with blood transfusion. DISCHARGE MEDICATIONS: 1. Pantoprazole 40 mg p.o. daily. 2. Alprazolam 0.5 p.o. at bedtime. 3. Furosemide 20 mg p.o. as directed. 4. Levothyroxine 75 mcg p.o. daily. 5. Atorvastatin 20 mg p.o. at bedtime. 6. Lyrica 75 mg p.o. daily. 7. Metoprolol 50 mg b.i.d. 8. Celexa 20 mg p.o. daily. 9. Prednisone 2 mg p.o. daily. 10. Acetaminophen for arthritis pain relief. 11. Baclofen 10 mg p.o. p.r.n. 12. Aspirin 81 mg p.o. daily. 13. Clopidogrel 75 mg p.o. daily. 14. Coumadin has been withheld. PRESENTING COMPLAINT: Abnormal labs. HISTORY OF PRESENTING COMPLAINT: Ms. Shi is a 68-year-old female with multiple comorbidities including previous coronary artery disease with stents, hypertension, history of lupus, dyslipidemia, and B-cell lymphoma. She came to the emergency department because she had been having coffee-grounds emesis and melena for a couple of weeks. Her primary care doctor did some labs and found her hemoglobin to be remarkably low, so she was advised to come to the hospital for admission. HOSPITAL COURSE: Ms. Shi was initially evaluated and was found to be anemic with a hemoglobin of 7.5. She was also hypotensive with a blood pressure of 97/58, mildly symptomatic. Was admitted initially to the ICU. Was started on fluid resuscitation and PRBC transfusion. She did improve and got transferred to the medical floor, where she was evaluated by GI, and an endoscopy was done which only showed some gastritis. The patient's H H was, however, followed up, and it did not show any changes after the transfusion. The patient also denied any more ongoing emesis or melena stool. This morning she feels a lot stronger. The daughter was at the bedside at the time of the encounter. We think she is fairly stable for discharge. She has been advised to withhold the Coumadin for now. The indication for the Coumadin is really not clear. She tells us that she was started on the Coumadin about 8 years to 9 years ago because of a blood clot that she had in her leg that went into her lungs after hip replacement surgery. So, we are not quite sure if there are any other reasons why she should be on Coumadin. In any case, now that she had a massive GI bleed and need a blood transfusion, this has been withheld, and we have advised that she follow up with her primary care doctor before she starts the Coumadin back. Time spent for discharge is 35 minutes. cc: MD Michele Gaffney MD Adnan A. Seljuki, MD
== END 2018-12-27 12:17 | disposition home or self-care (01) | DRG 813 ==
LOC: ED 14:33 → EDIPHOLD 17:28 → ICU 12-26 01:55 → 3N 12-26 12:42
PROVIDERS: ATTEND Internal Medicine
CPT/HCPCS: 36430; 71010; 71045; 74176; 80053; 81001; 82550; 82607; 82728; 82746; 83540; 83550; 83690; 83735; 83880; 84484; 85014; 85018; 85025; 85610; 85730; 86850; 86900; 86901; 86920; 87088; 93005; 94640; 96365; 96366; 96368; 96372; 96375; 96376; 97165; 97535; 99285; A9270; C9113; J1940; J3430; J3475; J7030; J7040; J7050; P9016; S0164

== ENCOUNTER 2019-01-24 10:37 | Inpatient (IN) ==
[2019-01-24 12:56] LABS: URINE SOURCE CATH
--- NOTE | 2019-01-24 12:59 | Diag Imaging Result Doc PS360 ---
CHEST-2 VIEWS - 01/24/2019 INDICATION: wheezing COMPARISON: 12/26/2018 FINDINGS: Stable left central line. Stable sternotomy changes. There is new alveolar infiltrate in the right middle lobe. Heart size and pulmonary vascularity are top normal. No significant pleural effusion. IMPRESSION: Right middle lobe pneumonia. Electronically signed by Jacob Rodriguez 01/24/2019 12:57 PM
[2019-01-24 13:03] LABS: BILIRUBIN URINE NEGATIVE (NEGATIVE); BLOOD URINE NEGATIVE (NEGATIVE); COLOR YELLOW; GLUCOSE URINE NEGATIVE (NEGATIVE); KETONE URINE NEGATIVE (NEGATIVE); LEUKOCYTES URINE SMALL (NEGATIVE); NITRITE URINE NEGATIVE (NEGATIVE); PH URINE 5.5; PROTEIN URINE TRACE mg/dL (NEGATIVE); SP GRAVITY URINE 1.015; TURBIDITY URINE CLEAR (CLEAR); UROBILINOGEN URINE NORMAL (NORMAL)
[2019-01-24 13:03] LABS: BASO# 0.02 X1000 (0.0-0.2); BASO% 0.3 % (0.0-0.8); EOS# 0.12 X1000 (0.0-0.7); EOS% 1.7 % (0.0-10.0); HEMATOCRIT 31.3 % (37.0-47.0); HEMOGLOBIN 9.8 g/dL (12.0-16.0); LYMPH# 0.31 X1000 (1.2-3.4); LYMPH% 4.5 % (20.5-51.1); MCH 26.6 PG (27-31); MCHC 31.3 g/dL (33-37); MCV 84.8 FL (81-99); MONO# 0.43 X1000 (0.11-0.59); MONO% 6.3 % (1.7-9.3); MPV 11.1 FL (7.4-10.4); NEUT# 5.98 X1000 (1.4-6.5); NEUT% 87.2 % (42.2-75.2); PLT 144 X1000 (130-400); RBC 3.69 XMIL (4.2-5.4); RDW 17.5 % (11.5-14.5); WBC 6.86 X1000 (4.8-10.8)
[2019-01-24 13:04] LABS: UR EPITHELIAL CELLS <10 /HPF (<10); URINE BACTERIA NEGATIVE /HPF; URINE RBC <10 /HPF (<10); URINE WBC <10 /HPF (<10)
[2019-01-24 13:12] LABS: ALB/GLOB RATIO 1.4; ALBUMIN 3.7 g/dL (3.5-5.0); CALCIUM 8.8 mg/dL (8.8-10.2); CREATININE 1.6 mg/dL (0.5-0.9); POTASSIUM 4.1 mmol/L (3.5-5.1); TOTAL BILIRUBIN 0.24 mg/dL (0.20-1.00); TOTAL PROTEIN 6.4 g/dL (6.3-8.3)
[2019-01-24] MEDS ORDERED: NS 1,000 ML IV ONE (13:48)
[2019-01-24] MEDS ORDERED: ZOSYN 3.375 GM in NS 50 ML IV ONE (13:48)
[2019-01-24] MEDS: ULTRAM PO PRN ×2 (14:42→21:00)
[2019-01-24] MEDS ORDERED: ZOFRAN IV PRN ×2 (15:35)
[2019-01-24] MEDS ORDERED: VANCOMYCIN IV PER PHARMACY MISC SCH (15:35)
--- NOTE | 2019-01-24 16:14 | HISTORY AND PHYSICAL ---
CHIEF COMPLAINT: Nausea, vomiting, and diarrhea. HISTORY OF PRESENT ILLNESS: Miss Shi is a 68-year-old female who carries a past medical history of ischemic cardiomyopathy, [place] x2 with a total of 4 stents, lupus, hypertension, dyslipidemia, chronic back pain, anxiety disorder, anemia, diffuse large B-cell lymphoma status post chemotherapy, vitamin B12 deficiency, celiac disease, diverticulitis, gouty arthritis, GERD, osteopenia, and chronic urinary tract infection. She is on maintenance dose of Levaquin. Recent kidney stone with a lithotripsy with Dr. Sotomayor. She is supposed to be on supplemental O2 for heart failure. However, she has been noncompliant and only wears it p.r.n. Left-sided port in her chest for IVIG infusions. Recently admitted for a GI bleed and was taken off her Coumadin. She came to the ED today secondary to intractable nausea and vomiting since 1:30 a.m. Her last meal was half of a hamburger steak and potato. Daughter also noted some bright red blood per rectum, but does report that she has a history of hemorrhoids. It was not a massive amount, just some on the tissue. She was given a total of 50 mg of Phenergan as one 25 mg tablet at 7:30 and another 25 mg tablet at 9:30. She did not have any relief, so she was brought to the ED. She was found to have a right middle lobe pneumonia. Given her admission within the last month, we will treat her for hospital-acquired pneumonia. I started her on broad-spectrum antibiotic, supplemental O2, p.r.n. breathing treatments, aggressive pulmonary toilet, and continue antiemetics. PAST MEDICAL HISTORY: 1. Ischemic cardiomyopathy. 2. Two MIs in the past, total of 4 stents. 3. Lupus. 4. Hypertension. 5. Dyslipidemia. 6. Chronic back pain. 7. Anxiety disorder. 8. Anemia. 9. Diffuse large cell B-cell lymphoma status post chemotherapy. 10. Vitamin B12 deficiency. 11. Celiac disease. 12. Diverticulitis. 13. Gouty arthritis. 14. GERD. 15. Osteopenia. 16. IVIg deficiency with a left-sided port. The patient recently had a treatment on with a new medication, Gamunex-C. 17. Recurrent UTIs on low-dose Levaquin. PAST SURGICAL HISTORY: 1. Right total hip arthroplasty. 2. Bilateral cataract surgery. 3. Cardiac stents x4, two were 1 year ago and two more 7 to 10 years prior. 4. Recent left-sided lithotripsy with Dr. Sotomayor. 5. Left-sided port. SOCIAL HISTORY: Former 2 pack per day smoker, quit in the early . No alcohol, tobacco, or illicit drug use now. She is supposed to be on home O2; however, noncompliant and only wears a p.r.n. She lives with her daughter in [place]. FAMILY HISTORY: Colon cancer, breast cancer, alcoholism, osteoporosis, lung cancer, hypertension, and dyslipidemia. ALLERGIES: No known drug allergies. CURRENT HOME MEDICATIONS: Per EMR. REVIEW OF SYSTEMS: Twelve-point review of systems completely negative except for those mentioned in the HPI. Subjective fever, chills. Denied chest pain, palpitations. Other as mentioned in HPI. PHYSICAL EXAMINATION: VITAL SIGNS: Temperature is 98.7 degrees, heart rate 92, respirations 20, blood pressure 117/77, and O2 is 96% on room air. GENERAL: Miss Shi is a 68-year-old female who is lying on the stretcher somewhat sleepy, but does awaken easily and answers questions appropriately. She does fall back asleep easily. No acute distress. HEENT: Atraumatic, normocephalic. PERRL. CARDIOVASCULAR: S1, S2 appreciated. No murmurs, gallops, or rubs noted. RESPIRATORY: Lung sounds clear bilaterally. Faint wheezes expiratory. GASTROINTESTINAL: Soft. Mildly tender throughout lower quadrants. Positive bowel sounds in 4 quadrants. EXTREMITIES: Negative for edema. There is some venous insufficiency with varicose veins. NEUROLOGIC: Again, the patient is sleepy, but she does awaken easily. Answers questions appropriately. No focal deficits noted. SKIN: Warm, pale, dry, intact. DIAGNOSTIC DATA: Chest x-ray showed a right middle lobe pneumonia. LABORATORY DATA: White count 6, hemoglobin and hematocrit 9 and 31, platelet count 144,000. Sodium 144, potassium 4.1, BUN 17, creatinine 1.6, blood glucose is 129. Troponin less than 0.010. Urinalysis is negative for bacteria, negative for nitrates. RECOMMENDATIONS: 1. Intractable nausea, vomiting, and diarrhea. We will continue with antiemetics. Check stool cultures. 2. Health care associated pneumonia, right middle lobe. We will continue with broad-spectrum antibiotics, IV fluids gently, aggressive pulmonary toilet, and bronchodilators. 3. Recent history of a gastrointestinal bleed. The patient was taken off her Coumadin. Daughter did report bright red blood per rectum this a.m. after several BMs. However, it was not a massive amount. Merom that it was hemorrhoidal. We will also check an occult stool. 4. Acute kidney injury on chronic kidney disease. We will continue to gently hydrate. 5. Questionable history of congestive heart failure. Per their report, she is supposed to be on home O2, but has been noncompliant. We will go ahead and recheck an echocardiogram. 6. Diffuse large cell B-cell lymphoma status post chemotherapy in remission. 7. IVIG deficiency. She just received treatment with a new medication on . Followed by Dr. Camilla Mccoy. 8. Recent left-sided kidney stones with horns status post lithotripsy with Dr. Sotomayor. 9. Coronary artery disease status post 2 myocardial infarctions in the past. Aware. 10. Anxiety disorder. 11. Frequent urinary tract infections on low-dose Levaquin at home. 12. Lupus. 13. Chronic back pain. Further recommendations to follow physician evaluation, laboratory data, and diagnostic data. Dictated by SNEHA Chapman for Wolfgang Quintero MD cc: Abad Pena MD Agree with the above. the following is my own face to face assessment. Patient also former heavy smoker with hx of COPD. moderate expiratory wheeze on lung exam. likely at least mild copd exacerbation in addition to pneumonia. will add steroids and nebs. MTDD
[2019-01-24] MEDS: NS 1,000 ML IV SCH (16:30)
[2019-01-24] MEDS: ZOSYN 2.25 GM in NS 50 ML IV SCH ×2 (16:42→23:03)
[2019-01-24] MEDS ORDERED: VANCOMYCIN 1,750 MG in NS 250 ML IV ONE (17:00)
[2019-01-24] MEDS: SOLU-MEDROL IV SCH (18:08)
[2019-01-24] MEDS: DUONEB (A & A) INH SCH ×2 (19:58→23:38)
--- NOTE | 2019-01-24 19:58 | EKG Report ---
Test Performed on : 01/24/2019 11:52:34 AM Test Reason : nausia and vomiting Blood Pressure : / mmHG Vent. Rate : 094 BPM Atrial Rate : 094 BPM P-R Int : 166 ms QRS Dur : 118 ms QT Int : 402 ms P-R-T Axes : 041 -72 040 degrees QTc Int : 502 ms Normal sinus rhythm. Left axis deviation Low voltage QRS Incomplete right bundle branch block Possible Lateral infarct , age undetermined Inferior infarct (cited on or before 28-MAR-2017) Abnormal ECG When compared with ECG of 25-DEC-2018 16:07, (Unconfirmed) T wave inversion no longer evident in Inferior leads Nonspecific T wave abnormality, improved in Anterior leads Unconfirmed Result
[2019-01-24] MEDS: TYLENOL PO PRN (21:00)
[2019-01-24] MEDS: LOPRESSOR PO SCH (21:00)
[2019-01-24] MEDS: LIPITOR PO SCH (21:00)
[2019-01-24] MEDS: XANAX PO PRN (23:03)
[2019-01-25] MEDS: DUONEB (A & A) INH SCH ×6 (03:36→22:57)
[2019-01-25] MEDS: SOLU-MEDROL IV SCH ×2 (04:23→17:52)
[2019-01-25] MEDS: ZOSYN 2.25 GM in NS 50 ML IV SCH ×5 (04:23→22:18)
--- NOTE | 2019-01-25 06:41 | EKG Report ---
Test Performed on : 01/25/2019 06:17:42 AM Test Reason : tachycardia Blood Pressure : / mmHG Vent. Rate : 084 BPM Atrial Rate : 084 BPM P-R Int : 208 ms QRS Dur : 130 ms QT Int : 412 ms P-R-T Axes : 050 -48 015 degrees QTc Int : 486 ms Normal sinus rhythm. Left axis deviation Right bundle branch block Inferior infarct (cited on or before 28-MAR-2017) Abnormal ECG When compared with ECG of 24-JAN-2019 11:52, (Unconfirmed) No significant change was found Confirmed by John Sherwood MD ([id number]) on 01/28/2019 8:47:36 PM
[2019-01-25 06:42] LABS: EOS# 0.01 X1000 (0.0-0.7); EOS% 0.3 % (0.0-10.0); HEMATOCRIT 27.8 % (37.0-47.0); HEMOGLOBIN 8.5 g/dL (12.0-16.0); LYMPH% 12.4 % (20.5-51.1); MCH 25.8 PG (27-31); MCHC 30.6 g/dL (33-37); MCV 84.2 FL (81-99); MONO# 0.08 X1000 (0.11-0.59); MONO% 2.5 % (1.7-9.3); MPV 11.2 FL (7.4-10.4); NEUT# 2.74 X1000 (1.4-6.5); NEUT% 84.8 % (42.2-75.2); PLT 141 X1000 (130-400); RDW 17.8 % (11.5-14.5); WBC 3.23 X1000 (4.8-10.8)
[2019-01-25 07:28] LABS: CALCIUM 8.1 mg/dL (8.8-10.2); CREATININE 1.5 mg/dL (0.5-0.9); POTASSIUM 3.9 mmol/L (3.5-5.1)
[2019-01-25] MEDS: LYRICA PO SCH (09:16)
[2019-01-25] MEDS: PROTONIX PO SCH (09:17)
[2019-01-25] MEDS: NS 1,000 ML IV SCH ×2 (09:17→18:56)
[2019-01-25] MEDS: LOPRESSOR PO SCH ×2 (09:17→22:18)
[2019-01-25] MEDS: PREDNISONE PO SCH (09:17)
[2019-01-25] MEDS: CELEXA PO SCH (09:17)
[2019-01-25] MEDS: SYNTHROID PO SCH (09:17)
[2019-01-25] MEDS: ULTRAM PO PRN (11:11)
[2019-01-25] MEDS: TYLENOL PO PRN (11:11)
--- NOTE | 2019-01-25 14:53 | PROGRESS NOTE ---
DATE: 01/25/2019 INTERVAL HISTORY: Patient's nausea, vomiting, diarrhea almost entirely resolved. Dyspnea much improved. Wheezing also almost resolved; there is still a little. No new complaints, no acute events overnight. REVIEW OF SYSTEMS: Twelve point review of systems negative except as per interval history. LABS: WBC 3.2, hemoglobin 8.5, hematocrit 27.8, platelets 141,000. Sodium 144, potassium 3.9, chloride 111, bicarb 22, BUN 18, creatinine 1.5, glucose 129. VITALS: T-max 99.8 degrees, pulse 96, respirations 18, blood pressure 93/48, O2 saturation 95% on room air. PHYSICAL EXAMINATION: General: No acute distress. Vitals: As above. HEENT: Normocephalic, atraumatic. Moist mucous membranes. No cervical adenopathy. Cardiovascular: Regular rate and rhythm. No murmurs noted. Pulmonary: Faint expiratory wheeze, markedly improved. Otherwise largely clear to auscultation bilaterally. Abdomen: Soft. No longer tender, nondistended. Bowel sounds positive. Extremities: Peripheral pulses intact. No clubbing or cyanosis. Neurologic: Cranial nerves grossly intact. No focal deficits identified. Psychiatric: Normal mood and affect. Awake, alert, oriented x3. Skin: No new rashes or lesions identified. ASSESSMENT AND PLAN: 1. Healthcare associated pneumonia, right middle lobe. The patient improving rapidly on vancomycin and Zosyn. If she continues to improve, then may be able to transition to p.o. antibiotics tomorrow. Continue weaning oxygen as possible and monitor. The patient on 2 L of oxygen at home. 2. Chronic obstructive pulmonary disease exacerbation. Patient is a former heavy smoker with diagnosis of COPD on low-dose oxygen at home. Fairly significant wheezing on admission but much improved now. We will wean steroids and continue nebs. 3. Nausea, vomiting, myalgias. Suspect secondary to pneumonia versus viral gastroenteritis. Either way, improving. Continue gentle fluids and monitor. 4. Acute kidney injury versus chronic kidney disease 3. Patient with creatinine 1.6 on admission. Appears to have baseline around 1.3 or 1.4 but has varied quite a bit in the past. Exact baseline level uncertain. We will continue IV fluids as above. Improving a little bit to 1.5 today. 5. History of diffuse large B-cell lymphoma. Reportedly in remission. 6. IVIG deficiency. The patient received an infusion last . Followed by Dr. Mccoy. 7. Coronary artery disease. Continue home medications. 8. Chronic pain. Continue home medication. 9. Hypothyroidism. Continue Synthroid.
[2019-01-25] MEDS ORDERED: NS 250 ML IV ONE (21:04)
[2019-01-25 21:27] LABS: HEMATOCRIT 27.8 % (37.0-47.0); HEMOGLOBIN 8.5 g/dL (12.0-16.0); LYMPH# 0.33 X1000 (1.2-3.4); LYMPH% 8.3 % (20.5-51.1); MCH 25.8 PG (27-31); MCHC 30.6 g/dL (33-37); MCV 84.5 FL (81-99); MONO# 0.11 X1000 (0.11-0.59); MONO% 2.8 % (1.7-9.3); MPV 11.3 FL (7.4-10.4); NEUT# 3.55 X1000 (1.4-6.5); NEUT% 88.9 % (42.2-75.2); PLT 137 X1000 (130-400); RBC 3.29 XMIL (4.2-5.4); RDW 17.8 % (11.5-14.5); WBC 3.99 X1000 (4.8-10.8)
[2019-01-25 21:55] LABS: ANISOCYTOSIS 1+; LARGE PLATELETS OCCASIONAL; LYMPHS 6 % (21-51); MONO 1 % (1-9); SEGS 93 % (42-75)
[2019-01-25 22:10] LABS: AGAP 12; ALB/GLOB RATIO 1.1; ALBUMIN 3.2 g/dL (3.5-5.0); ALKALINE PHOSPHATASE 57 U/L (32-104); BUN 19 mg/dL (8-22); CALCIUM 8.1 mg/dL (8.8-10.2); CHLORIDE 109 mmol/L (98-107); COSMO 287; CREATININE 1.5 mg/dL (0.5-0.9); ESTIMATED GFR 34; GLUCOSE 135 mg/dL (70-104); GOT 20 U/L (10-30); GPT 10 U/L (10-36); POTASSIUM 3.3 mmol/L (3.5-5.1); SODIUM 142 mmol/L (136-145); TCO2 21 mmol/L (25-35); TOTAL BILIRUBIN < 0.15 mg/dL (0.20-1.00)
[2019-01-25] MEDS: LIPITOR PO SCH (22:17)
[2019-01-26] MEDS: XANAX PO PRN (01:43)
[2019-01-26] MEDS: ULTRAM PO PRN (01:43)
[2019-01-26] MEDS: TYLENOL PO PRN (01:43)
[2019-01-26] MEDS: NS 1,000 ML IV SCH (02:24)
[2019-01-26] MEDS: DUONEB (A & A) INH SCH ×2 (03:00→07:54)
[2019-01-26] MEDS: ZOSYN 2.25 GM in NS 50 ML IV SCH ×3 (05:06→10:44)
[2019-01-26] MEDS: SOLU-MEDROL IV SCH (05:06)
--- NOTE | 2019-01-26 07:17 | Diag Imaging Result Doc PS360 ---
EXAM: CHEST-PORTABLE INDICATION: dyspnea TECHNIQUE: One view COMPARISON: 01/24/2019 FINDINGS: The left central line is in stable position. Infiltrate at the mid and lower lung zone on the right, likely in the right middle lobe is approximately stable. No new consolidation is identified. Cardiac silhouette is stable. IMPRESSION: Stable chest. Electronically signed by Erik Levin 01/26/2019 7:15 AM
[2019-01-26 09:21] LABS: HEMATOCRIT 27.4 % (37.0-47.0); HEMOGLOBIN 8.2 g/dL (12.0-16.0); MCH 26.1 PG (27-31); MCHC 29.9 g/dL (33-37); MCV 87.3 FL (81-99); MPV 10.3 FL (7.4-10.4); RBC 3.14 XMIL (4.2-5.4); WBC 4.1 X1000 (4.8-10.8)
[2019-01-26] MEDS: SYNTHROID PO SCH (09:21)
[2019-01-26] MEDS: LOPRESSOR PO SCH (09:21)
[2019-01-26] MEDS: PROTONIX PO SCH (09:22)
[2019-01-26] MEDS: PREDNISONE PO SCH (09:22)
[2019-01-26] MEDS: CELEXA PO SCH (09:22)
[2019-01-26] MEDS: LYRICA PO SCH (09:22)
[2019-01-26 09:42] LABS: CALCIUM 7.7 mg/dL (8.8-10.2); CREATININE 1.4 mg/dL (0.5-0.9); POTASSIUM 3.3 mmol/L (3.5-5.1)
[2019-01-26 12:01] VITALS: BP 131/66
[2019-01-26] MEDS ORDERED: VANCOMYCIN 1,500 MG in NS 250 ML IV SCH (17:00)
--- NOTE | 2019-01-26 20:20 | DISCHARGE SUMMARY ---
ADMISSION DATE: 01/24/2019 DISCHARGE DATE: 01/26/2019 PERTINENT STUDIES: Initial chest x-ray with right middle lobe pneumonia. Repeat x-ray stable to slightly improved. Initial creatinine 1.6. Discharge creatinine 1.4. Lactate 1.6. Repeat lactate 2.3. Further repeat lactate 2.0. DISCHARGE DIAGNOSES: 1. Right middle lobe pneumonia. 2. Chronic obstructive pulmonary disease exacerbation. 3. Nausea and vomiting. 4. Myalgias. 5. Chronic kidney disease stage 3. 6. IgG deficiency. 7. Coronary artery disease. 8. Chronic pain. 9. Hypothyroidism. 10. History of diffuse large B-cell lymphoma. HOSPITAL COURSE: The patient presented initially with complaints of nausea, vomiting, and dyspnea. Initial workup was significant for right middle lobe on chest x-ray. Mildly elevated creatinine over baseline. With gentle fluids and treatment for infection, this improved to 1.4, which is essentially her baseline. Given patient's nausea, vomiting, and myalgias in addition to her respiratory symptoms, there was concern for flu, but swab was negative. The patient's symptoms improved rapidly with fluids and treatment for pneumonia. She was placed on antibiotics with vancomycin and Zosyn initially and later transitioned to Levaquin p.o. She did have some significant wheezing on admission, so she was also thought to have a mild COPD exacerbation which improved rapidly with IV steroids and DuoNeb. The patient's chronic comorbidities were stable. The patient did have positive Clostridium difficile antigen, but negative toxin and her minimal diarrhea resolved rapidly with treatment of her underlying infection. She was not thought to have active C difficile. DISCHARGE VITAL SIGNS: Temperature 98.2 degrees, pulse 82, respirations 18, blood pressure 131/66, O2 saturation 96% on room air. DISCHARGE DIET: Cardiac. DISCHARGE MEDICATIONS: Atorvastatin 20 mg p.o. at bedtime, Lyrica 150 mg p.o. at bedtime, albuterol nebulizers as needed, Tylenol as needed, baclofen 10 mg p.o. as needed, Celexa 20 mg p.o. daily, folic acid daily, Levaquin 750 mg p.o. daily for an additional 8 days, Medrol Dosepak taper, then resume prednisone 1 mg 2 tablets p.o. daily, Protonix 40 mg p.o. daily, Synthroid 75 mcg p.o. daily, Xanax as previously prescribed, metoprolol 50 p.o. b.i.d., Plavix 75 mg p.o. daily. FOLLOWUP AND PLAN: The patient discharging home to finish course of treatment for her largely resolved pneumonia with p.o. Levaquin. A short course of steroids for her chronic obstructive pulmonary disease exacerbation. Follow up with primary care physician. TIME SPENT: Greater than 30 minute spent on discharge and counseling patient.
--- NOTE | 2019-01-31 00:43 | PROVIDER DOCUMENTATION ---
This chart was entered by Fallon Sharma Scribe, acting as scribe for Geovani Alarcon DO. HPI-Abdominal Pain/GI Problem - General Chief Complaint: N/V/D Stated Complaint: REACTION TO IV TX? Time Seen by Provider: 01/24/19 11:32 Source: patient, family Allergies/Adverse Reactions: Patient Allergies Allergy/AdvReac Type Severity Reaction Status Date / Time No Known Allergies Allergy Verified 12/25/18 17:41 Home Medications: Home Medication List Medication Instructions Recorded Confirmed Last Taken Type Alprazolam [Xanax] 0.5 mg PO HS PRN 04/08/12 12/25/18 10/20/18 10:00 History Furosemide 20 mg PO DIRECTED 04/08/12 12/25/18 11/06/18 09:00 History Pantoprazole Sodium [Protonix] 40 mg PO DAILY 04/08/12 12/25/18 01/07/18 10:00 H istory Calcium Carbonate [Calcium] 600 mg PO BID 01/17/14 12/25/18 11/06/18 08:00 History Atorvastatin Calcium [Lipitor] 20 mg PO QHS 05/02/15 12/25/18 11/06/18 21:00 History Cholecalciferol (Vit D3) [Vitamin 5,000 unit PO DAILY 05/02/15 12/25/18 11/06/18 09:00 History D] Levothyroxine [Synthroid] 75 microgm PO DAILY 05/02/15 12/25/18 11/06/18 09:00 History Nitroglycerin [Nitrostat] 0.4 mg SL PRN PRN 08/14/15 12/25/18 03/27/17 History Pregabalin [Lyrica] 75 mg PO DAILY 08/14/15 12/25/18 11/06/18 09:00 History Metoprolol [Lopressor] 50 mg PO BID #60 tablet 08/19/15 12/25/18 11/07/18 11:00 Rx Citalopram [Celexa] 20 mg PO DAILY 03/28/17 12/25/18 11/06/18 09:00 History Prednisone 2 tab PO DAILY 03/28/17 12/25/18 11/06/18 09:00 History Acetaminophen [Arthritis Pain 1 - 2 tab PO Q8H PRN PRN 11/07/17 06/27/19 05/09/19 17:00 History Relief] Albuterol [Albuterol Neb] 2.5 mg INH HS 06/04/17 12/25/18 11/05/18 19:00 History Cyanocobalamin (Vitamin B-12) 1,000 mcg IJ Q30D 06/04/17 12/25/18 11/06/18 09:00 History [Cyanocobalamin Injection] Potassium Chloride [Klor-Con M20] 1 dose PO BID 12/24/17 12/25/18 11/07/18 09:00 History Albuterol Sulfate [Ventolin Hfa] 8 gm IH DAILY PRN 12/25/17 12/25/18 11/07/18 11:00 History Baclofen 10 mg PO PRN PRN 11/04/18 12/25/18 11/03/18 09:00 History Aspirin 81 mg PO DAILY #0 11/08/18 12/25/18 11/06/18 09:00 Rx Clopidogrel Bisulfate [Plavix] 75 mg PO DAILY #0 11/08/18 12/25/18 11/01/18 09:00 Rx - History of Present Illness-ABD Nature of Presenting Problems: 68 yowf presents to the ed with c/o abd cramping with n/v/d acute onset 0130am this morning. pt sts on of this week she had he IVIG tx but was given a new mmedication due to her normal being on back order. pt was given Gamunex-C. pt on exam is pale and c/o abd cramping with n/v/d still present. pt had medication called in for sx this am about 0830am but sx did not improve and pt was advised to come to ed by PMD Abdominal Pain Onset Location: reports: periumbilical Quality of Pain: reports: cramping Severity in ED: reports: moderate Onset/Duration: reports: this morning (0130am) Timing: reports: still present, intermittent Activities at Onset: reports: light activity Exposure to sick contacts?: No Modifying Factors: improves with: nothing Associated Symptoms: reports: diarrhea, fever/chills (subjective), nausea, vomiting. denies: back/neck pain, chest pain, cough, shortness of breath, weakness Last BM: this morning Dark Stools Present?: reports: none noticed Rectal Bleeding: reports: none # of Diarrhea Episodes: 5 Rectal Pain: reports: none # of Vomiting Episodes: 3 Emesis Description: reports: none Bruising or Bleeding Gums?: No Similar Symptoms Previously?: No Recently seen or treated by another doctor?: Yes (had recent IVIG tx) Review of Systems - Adult - REVIEW OF SYSTEMS - ADULT Constitutional: reports: see HPI, chills, fever (subjective) Eyes: reports: no symptoms reported Ears, Nose, Mouth & Throat: reports: no symptoms reported Cardiovascular: denies: see HPI, edema, palpitations Respiratory: denies: cough, shortness of breath, wheezing Gastrointestinal: reports: see HPI, abdominal pain, diarrhea, nausea, vomiting Genitourinary: reports: see HPI, frequent UTI's Musculoskeletal: denies: back pain, neck pain Integumentary: reports: no symptoms reported Neurological: denies: dizziness/vertigo, headache/migraines Psychiatric: reports: no symptoms reported Endocrine: reports: no symptoms reported Hematologic/Lymphatic: reports: no symptoms reported Allergic/Immunologic: reports: no symptoms reported All Other Systems: Reviewed and Negative Past History - Adult - PAST MEDICAL HISTORY-ADULT Review of Records: reports: Old Records Reviewed, Nursing Assessment Review, Medications Reviewed, Social history reviewed & non-contributory. Major Childhood Illnesses: reports: denies history Cardiovascular: reports: blood clots (PE), CHF, HTN, SC Respiratory: reports: asthma, COPD Gastrointestinal: reports: other Obstetrical/Gynecological: reports: denies history Genitourinary: reports: kidney disease, kidney stones, chronic UTI's Musculoskeletal: reports: denies history Neurological: reports: denies history Psychiatric: reports: denies history Endocrine/Immune: reports: cancer, immunosuppression (cancer), lupus Other Conditions: reports: denies history - PRIOR SURGERIES/PROCEDURES Surgical/Procedure History: reports: cardiac stent, hysterectomy, joint replacement (L hip replacement) - PRIOR HOSPITALIZATIONS Prior Hospitalizations: reports: for similar symptoms - IMMUNIZATION STATUS Childhood Immunizations: See Nurse Assessment Flu Vaccine: See Nurse Assessment - FAMILY HISTORY Family History: reviewed, not pertinent - SOCIAL HISTORY Smoking: quit greater than 1 year Substance Use: denies Alcohol Use Frequency: never Living Situation: family Physical Exam-General - PHYSICAL EXAM-ADULT Initial Vital Signs Reviewed: Yes - CONSTITUTIONAL General Appearance: alert, mild distress, obese. negative: appears well - EYES Eyes: PERRL/EOMI, pale conjunctivae - HEAD, EARS, NOSE, MOUTH & THROAT HENMT: other (no teeth). negative: moist mucous membranes (dry oral) - NECK Neck: full range of motion, normal inspection - RESPIRATORY Respiratory: chest non-tender, wheezing (RUL), increased rate (24) - CARDIOVASCULAR Cardiovascular: normal peripheral pulses, tachycardia (102) - GASTROINTESTINAL (ABDOMEN) Abdominal Exam: soft, abnormal bowel sounds (diminshed), guarding, tenderness (umbilical). negative: distended - LYMPHATIC Lymphatic: no adenopathy - MUSCULOSKELETAL Back Exam: normal inspection, no CVA tenderness, no vertebral tenderness Extremity: normal range of motion, no pedal edema, no calf tenderness, normal capillary refill, pelvis stable, other (pt has dark area on anterior BLE and sts has been told it is due to blood thinners. denies pain in area). negative: sw elling, tenderness - SKIN Integumentary: warm/dry, pallor - NEUROLOGIC Neurologic: grossly normal, no motor/sensory deficits - PSYCHIATRIC Psych/Mental Status: normal mood/affect, normal thought content, normal thought process, oriented x 3 Progress - PLAN OF CARE/RESULTS Progress/Plan/Lab Results: Vital Signs - 8 hr 01/24/19 10:41 01/24/19 11:34 Temperature 98.2 F 98.7 F Pulse Rate 99 H 92 H Respiratory Rate 18 20 Blood Pressure 130/62 117/77 O2 Sat by Pulse Oximetry 94 L 96 Result Diagrams: 01/24/19 12:39 01/24/19 12:39 - REASSESSMENT Reassessment #1 Time Reassessed: 13:04 (n/v improved) Status: improving Reassessment Comment: at bedside Reassessment #2 Time Reassessed: 13:47 (resting in bed) Status: unchanged Reassessment Comment: at bedside - EKG 1 Time of EKG reading by physician:: 11:52 EKG Read and Signed by:: Geovani Alarcon EKG Interpretation (*Must complete 3 of following elements*): Abnormal Rate: 94 Rhythm: nsr [place]: left (deviation) QRS: RBB (incomplete), other (Low volatage QRS) NE Interval: normal ST Wave: normal Comments: poss lateral infarct, age undetermined/infer infartc, age undetermined - XRAY 1 XRAY: Bilateral XRAY Study: Chest Impression: See EMR Report (CHEST-2 VIEWS - 01/24/2019 INDICATION: wheezing COMPARISON: 12/26/2018 FINDINGS: Stable left central line. Stable sternotomy changes. There is new alveolar infiltrate in the right middle lobe. Heart size and pulmonary vascularity are top normal. No significant pleural effusion. IMPRESSION: Right middle lobe pneumonia. Electronically signed by Jacob delgado 01/24/2019 12:57 PM 01/24/19 1257 Interpreting Physician: Jacob Rodriguez MD Dictated Date/Time: 01/24/19 1256 cc: Geovani Alarcon DO; Abad Pena MD) - CONSULTS/PCP/HOSPITALIST Notification #1 *Consult/PCP/Hospitalist*: dr weinstein Time Discussed: 13:54 Reason/Comments: PNA and N/V Consult Disposition: Admit Departure - Departure Date of Disposition Decision: 01/24/19 Time of Disposition Decision: 13:54 DIAGNOSIS: Pneumonia Qualifiers: Pneumonia type: due to unspecified organism Laterality: right Lung location: middle lobe of lung Qualified Code(s): J18.1 - Lobar pneumonia, unspecified organism N&V (nausea and vomiting) Qualifiers: Vomiting type: unspecified Vomiting Intractability: non-intractable Qualified Code(s): R11.2 - Nausea with vomiting, unspecified Disposition: ADMITTED INPATIENT 09 Certified Medical Emergency: Emergent Condition: Stable Referrals and Follow-Ups: Abad Pena MD [Primary Care Provider] - - Critical Care Note This patient required my direct & personal management of CC.: Yes Total Time (mins): 34 Critical Care Statement: This patient required my direct personal management to treat or rule out processes, the absence of which, could potentiallly result in sudden, clinically significant life or limb threatening deterioration. Attestation - Physician/ SHAAN Attestation Patient care was provided by Advanced Practice Provider:: No The physician spent face to face time with patient:: Yes Advanced Practice Provider documentation review:: Supervising physician onsite and consulted in the evaluation and care of this patient. The physician did have a face to face encounter with the patient. This chart was documented by the indicated scribe, (Fallon Sharma, [place]) and accurately reflects the services I performed and decisions made by me, Geovani Alarcon DO, as attested by the provider's signature.
== END 2019-01-26 13:30 | disposition home or self-care (01) | DRG 190 ==
LOC: ED 10:37 → 4N 14:36
PROVIDERS: ATTEND Internal Medicine
CPT/HCPCS: 51701; 71010; 71020; 71045; 71046; 80048; 80053; 81001; 82270; 82550; 83605; 84484; 85025; 85027; 87040; 87088; 87177; 87205; 87275; 87276; 87324; 87449; 87804; 88313; 89055; 93005; 93010; 94640; 94761; 96365; 99285; A9270; J2543; J2920; J3370; J7030; J7040; J7050; P9612

== ENCOUNTER 2019-06-09 02:53 | Inpatient (IN) ==
[2019-06-09] MEDS ORDERED: NS 1,000 ML IV ONE ×2 (03:17→08:21)
[2019-06-09] MEDS ORDERED: NS 500 ML IV ONE (03:17)
[2019-06-09] MEDS ORDERED: MAXIPIME 2 GM in NS 100 ML IV ONE (03:17)
--- NOTE | 2019-06-09 03:28 | PROVIDER DOCUMENTATION ---
HPI-General Adult - General Stated Complaint: AMS Time Seen by Provider: 06/09/19 03:08 Source: patient, long-term records Allergies/Adverse Reactions: Patient Allergies Allergy/AdvReac Type Severity Reaction Status Date / Time No Known Allergies Allergy Verified 05/11/19 07:43 Home Medications: Home Medication List Medication Instructions Recorded Confirmed Last Taken Type Alprazolam [Xanax] 0.5 mg PO BID 04/08/12 06/09/19 06/08/19 21:00 History Pantoprazole Sodium [Protonix] 40 mg PO DAILY 04/08/12 06/09/19 06/08/19 09:00 History Calcium Carbonate [Calcium] 600 mg PO BID 01/17/14 06/09/19 06/08/19 20:00 History Atorvastatin Calcium [Lipitor] 20 mg PO QHS 05/02/15 06/09/19 06/08/19 21:00 History Cholecalciferol (Vit D3) [Vitamin 5,000 unit PO DAILY 05/02/15 06/09/19 06/08/19 09:00 History D] Levothyroxine [Synthroid] 75 microgm PO DAILY 05/02/15 06/09/19 06/08/19 09:00 History Pregabalin [Lyrica] 150 mg PO QHS 08/14/15 06/09/19 06/08/19 20:00 History Metoprolol [Lopressor] 50 mg PO BID #60 tablet 08/19/15 06/09/19 06/08/19 21:00 Rx Citalopram [Celexa] 20 mg PO DAILY 03/28/17 06/09/19 06/08/19 08:00 History Prednisone 2 tab PO DAILY 03/28/17 06/09/19 06/08/19 08:00 History Acetaminophen [Arthritis Pain 1 - 2 tab PO Q8H PRN PRN 05/07/17 06/09/19 11/06/18 17:00 History Relief] Albuterol [Albuterol Neb] 2.5 mg INH HS 06/04/17 06/09/19 06/08/19 20:00 History Albuterol Sulfate [Ventolin Hfa] 8 gm IH DAILY PRN 12/25/17 06/09/19 05/09/19 History Baclofen 10 mg PO PRN PRN 11/04/18 06/09/19 06/08/19 19:00 History Clopidogrel Bisulfate [Plavix] 75 mg PO DAILY #0 11/08/18 06/09/19 05/04/19 Rx Folic Acid 1 mg PO DAILY 01/24/19 06/09/19 06/08/19 09:00 History Phenylephrine/Acetaminophen/Cp 1 tab PO BID 01/24/19 06/09/19 06/08/19 20:00 History [Tylenol Sinus Congest-Pain Cpt] Levofloxacin [Levaquin] 750 mg PO DAILY #8 tab 01/26/19 06/09/19 06/08/19 09:00 Rx Colchicine/Probenecid [Colbenemid] 1 ea PO DAILY 02/12/19 06/09/19 06/08/19 09:00 History Aspirin 81 mg PO DAILY 05/11/19 06/09/19 06/08/19 08:00 History - History of Present Illness -Gen Adult Nature of Presenting Problems: Brought in by EMS for AMS, and her sats were low 80s on RA. Pt is confused, so hx from daughter. Pt has lung CA, with mets to back, it involves entire R lung. She had her first dose of chemo about A WEEK AGO. sHE WAS ORIGINALLY PLACED ON MORPHINE ABOUT 3 WEEKS AGO, But it had to be stopped since she began hallucinating, and other MS changes. Morphine was restarted last . Tonight , she was stranded in the bathroom, insisted that was in her bed. After was helped to hallway, she stood there for 10 min, again insisted that was in her bed. No fever known, but one was founfd here, When placed back on her O2, sats were 97. Daughter says she had brain MRI last week in [place], does not know results. Location of Pain/Injury: reports: none Pain Radiation: reports: no radiation Quality of Pain: reports: none Severity: reports: moderate Onset/Duration: reports: just prior to arrival Timing: reports: still present, improving, constant Context/Activities at Onset: reports: none Modifying Factors: improves with: nothing Associated Symptoms: reports: cough Similar Symptoms Previously?: No Recently seen or treated by another doctor?: Yes (chemotherapy) Review of Systems - Adult - REVIEW OF SYSTEMS - ADULT ROS:: ROS per family Constitutional: reports: fever Eyes: reports: no symptoms reported Ears, Nose, Mouth & Throat: reports: no symptoms reported Cardiovascular: reports: no symptoms reported, other (pt mentione R upper CP) Gastrointestinal: reports: no symptoms reported, other (pt mentions R lower abd pain, but cnnot give details) Genitourinary: reports: no symptoms reported Musculoskeletal: reports: no symptoms reported Integumentary: reports: no symptoms reported Neurological: reports: see HPI Psychiatric: reports: no symptoms reported Endocrine: reports: no symptoms reported Hematologic/Lymphatic: reports: no symptoms reported Past History - Adult - PAST MEDICAL HISTORY-ADULT Review of Records: reports: Medications Reviewed Major Childhood Illnesses: reports: denies history Cardiovascular: reports: blood clots (PE), CHF, HTN, PR Respiratory: reports: asthma, COPD Gastrointestinal: reports: other Obstetrical/Gynecological: reports: denies history Genitourinary: reports: kidney disease, kidney stones, chronic UTI's Musculoskeletal: reports: denies history Neurological: reports: denies history Psychiatric: reports: denies history Endocrine/Immune: reports: cancer, immunosuppression (cancer), lupus Other Conditions: reports: denies history - PRIOR SURGERIES/PROCEDURES Surgical/Procedure History: reports: cardiac stent, hysterectomy, joint replacement (L hip replacement) - PRIOR HOSPITALIZATIONS Prior Hospitalizations: reports: for similar symptoms - IMMUNIZATION STATUS Childhood Immunizations: See Nurse Assessment Flu Vaccine: See Nurse Assessment - FAMILY HISTORY Family History: reviewed, not pertinent Physical Exam-General - PHYSICAL EXAM-ADULT Initial Vital Signs Reviewed: Yes - CONSTITUTIONAL General Appearance: appears well, alert, mild distress - EYES Eyes: PERRL/EOMI, pink conjunctivae (, sl pale though) - HEAD, EARS, NOSE, MOUTH & THROAT HENMT: moist mucous membranes, normal ENT inspection, pharynx normal - NECK Neck: full range of motion, supple - RESPIRATORY Respiratory: decreased breath sounds (, crackles L base) - CARDIOVASCULAR Cardiovascular: regular rate, rhythm, no edema, no gallop, no murmur - GASTROINTESTINAL (ABDOMEN) Abdominal Exam: non tender, soft - MUSCULOSKELETAL Back Exam: normal inspection, no CVA tenderness, no vertebral tenderness Extremity: normal range of motion, non-tender, normal inspection - SKIN Integumentary: normal color, normal turgor, warm/dry - NEUROLOGIC Neurologic: pump tender II-XII nml as tested, grossly normal, no motor/sensory deficits - PSYCHIATRIC Psych/Mental Status: other (confused) Progress - PLAN OF CARE/RESULTS Progress/Plan/Lab Results: Orders Category Date Time Status Cardiac Monitoring DIRECTED Care 06/09/19 03:17 Active Saul Cath Insertion ORDERED Care 06/09/19 03:17 Active IV Insertion ORDERED Care 06/09/19 03:17 Active IV Insertion ORDERED Care 06/09/19 03:17 Active Intake and Output-Strict ORDERED Care 06/09/19 03:17 Active Notify MD/PA/SNEHA for exam NOW Care 06/09/19 03:17 Active Notify Physician As Ordered Care 06/09/19 03:17 Active Repeat Vital Signs .Blood Pressure Care 06/09/19 03:17 Active Repeat Vital Signs .Heart Rate Care 06/09/19 03:17 Active Repeat Vital Signs .Oxygen Saturation Care 06/09/19 03:17 Active Repeat Vital Signs .Respiratory Rate Care 06/09/19 03:17 Active Repeat Vital Signs .Temp Care 06/09/19 03:17 Active CHEST-1 VIEW [RAD] Stat Exams 06/09/19 03:17 Ordered ABG [RESP] Routine Lab 06/09/19 03:18 Ordered BLOOD CULTURE [BLDCUL] Stat Lab 06/09/19 03:17 Uncollected CBC WITH DIFF [HEME] Stat Lab 06/09/19 03:17 Uncollected CK PROFILE [SP CHEM] Stat Lab 06/09/19 03:17 Uncollected COMPREHENSIVE METABOLIC PANEL [CHEM] Stat Lab 06/09/19 03:17 Uncollected LACTATE, PLASMA [CHEM] Q3H Lab 06/09/19 03:30 Uncollected LACTATE, PLASMA [CHEM] Q3H Lab 06/09/19 06:30 Uncollected LACTATE, PLASMA [CHEM] Q3H Lab 06/09/19 09:30 Uncollected LACTATE, PLASMA [CHEM] Timed Lab 06/09/19 03:17 Uncollected MAGNESIUM [CHEM] Stat Lab 06/09/19 03:18 Uncollected PROTIME WITH INR [COAG] Stat Lab 06/09/19 03:17 Uncollected PTT [COAG] Stat Lab 06/09/19 03:17 Uncollected TROPONIN T Stat Lab 06/09/19 03:17 Uncollected URINALYSIS W/POSS RFLX CULT [URINALYSIS] Stat Lab 06/09/19 03:17 Uncollected 0.9% Sodium Chloride Inj [Ns] 1,000 ml Med 06/09/19 03:17 Discontinued IV As Directed mls/hr 0.9% Sodium Chloride Inj [Ns] 500 ml Med 06/09/19 03:17 Active IV 999 mls/hr CefEPIME [Maxipime] 2 gm Med 06/09/19 03:17 Active 0.9% Sodium Chloride Inj [Ns] 100 ml IV NOW Oxygen Device Stat Oth 06/09/19 03:17 Active Result Diagrams: 06/09/19 04:48 06/09/19 04:48 - REASSESSMENT Reassessment #1 Time Reassessed: 06:31 (Assumed care @ S/O. Has slept, no complaints) Reassessment #2 Time Reassessed: 08:22 Status: improving (Seen and examined by me. Has febrile neutopenia with AMS and lung cancer, will need admission, fluids, IV Vanc/maxepime.) Reassessment Comment: CT head ordered by me - EKG 1 Time of EKG reading by physician:: 06:49 EKG Read and Signed by:: Julian Shea EKG Interpretation (*Must complete 3 of following elements*): Abnormal Rate: 100 Rhythm: NSR [place]: left QRS: RBB, other (old inferior PR) - XRAY 1 XRAY Study: Chest Impression: Abnormal (mass to mid and lower lung) - CONSULTS/PCP/HOSPITALIST Notification #1 *Consult/PCP/Hospitalist*: SNEHA Rodriguez, hospitalist paged at [phone] Consult Disposition: Will see in ED, Admit - CHANGE OF SHIFT REPORT (ED Provider) 1 Report Given and Care Transferred to:: Reyes Time of Transfer: 07:00 Items Pending: Other (repeat EKG, psych eval) Departure - Departure Date of Disposition Decision: 06/09/19 Time of Disposition Decision: 08:23 DIAGNOSIS: Febrile neutropenia, UTI (urinary tract infection), bacterial Sepsis without acute organ dysfunction Qualifiers: Sepsis type: sepsis due to unspecified organism Qualified Code(s): A41.9 - Sepsis, unspecified organism Lung malignancy Qualifiers: Laterality: right Lung location: lower lobe of lung Qualified Code(s): C34.31 - Malignant neoplasm of lower lobe, right bronchus or lung Disposition: ADMITTED INPATIENT 09 Certified Medical Emergency: Emergent Condition: Fair - Critical Care Note This patient required my direct & personal management of CC.: Yes Total Time (mins): 38 Critical Care Statement: This patient required my direct personal management to treat or rule out processes, the absence of which, could potentiallly result in sudden, clinically significant life or limb threatening deterioration. Attestation - Physician/ SHAAN Attestation Patient care was provided by Advanced Practice Provider:: No The physician spent face to face time with patient:: Yes Advanced Practice Provider documentation review:: Supervising physician onsite and consulted in the evaluation and care of this patient. The physician did have a face to face encounter with the patient.
[2019-06-09 03:45] LABS: ALLEN TEST YES; BE 5.1 mmoll (-3.0-3.0); BLOOD TYPE ARTERIAL; HCO3-(ACT) 28.9 mmoll (20.0-26.0); METHB 1.5 % (0.0-1.5); O2(CT) 13.3 mL/dL (15.0-23.0); O2HB 95.1 % (95.0-99.0); PCO2(98.6) 44 mmHg (35-45); PO2(98.6) 107 mmHg (60-100); SAMPLE BLOOD; SAO2 99.5 % (95.0-100.0); THB 9.8 g/dL (11.5-17.4); pH(98.6) 7.44 (7.35-7.45)
[2019-06-09 03:46] LABS: MODALITY CANNULA
[2019-06-09 05:03] LABS: URINE SOURCE CATH
[2019-06-09 05:15] LABS: BILIRUBIN URINE NEGATIVE (NEGATIVE); BLOOD URINE NEGATIVE (NEGATIVE); COLOR YELLOW; GLUCOSE URINE NEGATIVE (NEGATIVE); KETONE URINE NEGATIVE (NEGATIVE); LEUKOCYTES URINE TRACE (NEGATIVE); NITRITE URINE NEGATIVE (NEGATIVE); PH URINE 6.5; PROTEIN URINE 50 mg/dL (NEGATIVE); SP GRAVITY URINE 1.022; TURBIDITY URINE CLEAR (CLEAR); UROBILINOGEN URINE NORMAL (NORMAL)
[2019-06-09 05:16] LABS: INR 1.18; PROTIME 15.2 Seconds (11.0-16.0)
[2019-06-09 05:18] LABS: HEMATOCRIT 30.4 % (37.0-47.0); HEMOGLOBIN 9.5 g/dL (12.0-16.0); LYMPH% 48.4 % (20.5-51.1); MCH 28.9 PG (27-31); MCHC 31.3 g/dL (33-37); MCV 92.4 FL (81-99); MONO# 0.12 X1000 (0.11-0.59); MONO% 19.4 % (1.7-9.3); MPV 13.1 FL (7.4-10.4); PLT 74 X1000 (130-400); RBC 3.29 XMIL (4.2-5.4); RDW 14.2 % (11.5-14.5); UR EPITHELIAL CELLS <10 /HPF (<10); URINE BACTERIA NEGATIVE /HPF; URINE RBC <10 /HPF (<10); WBC 0.62 X1000 (4.8-10.8)
[2019-06-09 05:30] LABS: URINE CASTS NONE SEEN; URINE CRYSTALS NONE SEEN; URINE SMALL ROUND CELLS NONE SEEN; URINE YEAST NONE SEEN
[2019-06-09 05:31] LABS: ALB/GLOB RATIO 1.8; ALBUMIN 3.4 g/dL (3.5-5.0); CALCIUM 8.2 mg/dL (8.8-10.2); CREATININE 1.6 mg/dL (0.5-0.9); POTASSIUM 5.2 mmol/L (3.5-5.1); TOTAL BILIRUBIN 0.49 mg/dL (0.20-1.00); TOTAL PROTEIN 5.3 g/dL (6.3-8.3)
--- NOTE | 2019-06-09 07:17 | Diag Imaging Result Doc PS360 ---
EXAM: CHEST-1 VIEW 06/09/2019 HISTORY: AMS, pos sepsis TECHNIQUE: AP portable at 0333 COMMENT: There is alveolar opacification present in the right lower lobe which was also present on 05/11/2019. The inspiration is slightly less optimal than on the previous study. There are some loculated fluid collections or nodules in the minor fissure. This was also present previously. IMPRESSION: Stable chest. Electronically signed by Edi Birmingham 06/09/2019 7:15 AM
[2019-06-09] MEDS ORDERED: VANCOMYCIN 1 GM/NS 1 GM/250 ML IVPB IV ONE (08:18)
[2019-06-09] MEDS ORDERED: DUONEB (A & A) INH ONE (08:21)
--- NOTE | 2019-06-09 09:21 | Diag Imaging Result Doc PS360 ---
EXAM: CT HEAD W/O CONTRAST 06/09/2019 HISTORY: altered mental status TECHNIQUE: This exam was performed using automated exposure control, adjustment of mA or kV according to patient size, and/or use of iterative reconstruction technique. COMMENT: There are calcifications in the vertebral and internal carotid arteries bilaterally. There is some lucency in the area of the internal capsule on the left. There is minimal patchy subcortical white matter lucency in both hemispheres. No evidence of bleed or abnormal extra-axial fluid collection is present. The calvarium is intact. The visualized paranasal sinuses are clear. IMPRESSION: Minimal chronic ischemic changes. No evidence of acute disease. Electronically signed by Edi Birmingham 06/09/2019 9:18 AM
--- NOTE | 2019-06-09 10:24 | EKG Report ---
Test Performed on : 06/09/2019 06:33:19 AM Test Reason : ED. No order in [place] Blood Pressure : / mmHG Vent. Rate : 100 BPM Atrial Rate : 100 BPM P-R Int : 192 ms QRS Dur : 116 ms QT Int : 372 ms P-R-T Axes : 059 -69 054 degrees QTc Int : 479 ms Normal sinus rhythm. Left axis deviation Low voltage QRS Right bundle branch block Inferior infarct (cited on or before 28-MAR-2017) Abnormal ECG When compared with ECG of 07-MAR-2019 02:00, Vent. rate has increased BY 35 BPM T wave inversion no longer evident in Inferior leads Unconfirmed Result
[2019-06-09] MEDS ORDERED: ZOFRAN IV PRN (10:59)
[2019-06-09] MEDS ORDERED: TYLENOL PO PRN (10:59)
[2019-06-09] MEDS: NS 1,000 ML IV SCH (13:23)
[2019-06-09] MEDS: GRANIX SUBQ SCH (16:18)
[2019-06-09] MEDS: MAXIPIME 2 GM in NS 100 ML IV SCH (16:18)
--- NOTE | 2019-06-09 18:19 | HISTORY AND PHYSICAL ---
PRIMARY CARE PROVIDER: Dr. Pena. ONCOLOGIST: Dr. Camilla Mccoy. CHIEF COMPLAINT: Altered mental status, fever, chills, cough, shortness of breath, sore throat, dry mouth, constipation. HISTORY OF PRESENT ILLNESS: Ms. Shi is a 68-year-old female who carries a past medical history of ischemic cardiomyopathy, lupus, hypertension, dyslipidemia, chronic back pain, anxiety disorder, anemia, diffuse B-cell lymphoma, status post chemotherapy. Was in remission. She has recently been diagnosed with right-sided lung cancer with metastasis to her back. She started chemo a week ago and was placed on morphine, but stopped secondary to hallucinations and mental status changes, and was restarted again last on morphine. She reports just being out of her head and feeling like she was hallucinating. Also reports fever, chills, cough, shortness of breath, sore throat, dry mouth, abdominal pain with constipation. She states her last chemotherapy was last Saturday. She is supposed to have chemotherapy today. Her daughter called EMS. Upon their arrival, her O2 saturations were in the 80s. She came up to 97 with supplemental O2. She is currently awake, alert, and oriented x4. Workup in the ED showed she was febrile and neutropenic. She was initiated on cefepime. Cultures were drawn. She was given a 2 L bolus of fluid as well as a dose of subcu Granix, and we will admit her to a private room, place her on neutropenic precautions, neutropenic diet, and continue on IV cefepime and IV fluids, with a consult with Dr. Mccoy. PAST MEDICAL HISTORY: 1. Ischemic cardiomyopathy. 2. Two MIs in the past, with a total of 4 stents. 3. Lupus. 4. Hypertension. 5. Dyslipidemia. 6. Chronic back pain. 7. Anxiety disorder. 8. Anemia. 9. Diffuse large B-cell lymphoma, status post chemotherapy, in remission, followed by Dr. Mccoy. 10. Vitamin B12 deficiency. 11. Celiac disease. 12. Diverticulitis. 13. Gouty arthritis. 14. GERD. 15. Osteopenia. 16. IVIG deficiency, with a left-sided port. 17. Recurrent UTIs, on low-dose Levaquin. 18. New diagnosis of right-sided lung cancer with metastasis to her back. Received 1 dose of chemotherapy last week with Dr. Mccoy. PAST SURGICAL HISTORY: 1. Right total hip arthroplasty. 2. Bilateral cataracts. 3. Cardiac stents x4. 4. Left-sided lithotripsy. 5. Left-sided port. SOCIAL HISTORY: Former 2 pack per day smoker. She quit in early 1999. No alcohol, tobacco, or illicit drug use. Used to be on home O2, but noncompliant and only wears p.r.n. She does live with her daughter; however, she was not at bedside. She had a doctor's appointment. FAMILY HISTORY: Colon cancer, breast cancer, alcoholism, osteoporosis, lung cancer, hypertension, and dyslipidemia. ALLERGIES: No known drug allergies. MEDICATIONS: Home medications are being compiled. REVIEW OF SYSTEMS: Completely negative except for those mentioned in the HPI. PHYSICAL EXAMINATION: VITAL SIGNS: Temperature was 100.4 degrees, heart rate 108, respirations 20, blood pressure 118/60, O2 97% on 4 L nasal cannula. GENERAL: Ms. Shi is a 68-year-old female who is ill-appearing, lying on the stretcher, but in no acute distress. HEENT: Atraumatic, normocephalic. PERRL. Mucous membranes are dry. NECK: Supple. Trachea midline. CARDIOVASCULAR: S1, S2 appreciated. No murmurs, gallops, or rubs noted. RESPIRATORY: Lung sounds scattered rhonchi. No wheezes. GI: Soft, nontender, and nondistended. Bowel sounds 4 quadrants. EXTREMITIES: Negative for edema. No signs of clubbing or cyanosis. NEUROLOGIC: The patient was sleeping; however, she awakened easily. She knows her name, date of , the correct year, her location. She does know that she had been altered, that she had felt like she had been hallucinating, and that she knew that she had fever and was not feeling well, and had been brought to the hospital for those reasons. Did not appreciate any focal deficits. Her head CT was negative. DIAGNOSTIC DATA: Head CT negative. Chest x-ray shows stable chest. LABORATORY DATA: White count 0.62, hemoglobin and hematocrit 9 and 30, platelet count is 74,000. Sodium 135, potassium 5.2, BUN 25, creatinine 1.6, blood glucose is 122, magnesium 2.2. Troponin less than 0.010. Plasma lactate 1.7, recheck 1.0. Urinalysis negative for bacteria, WBCs 10 to 20, leukocytes trace, negative for nitrites. ASSESSMENT AND PLAN: 1. Neutropenic fever. Patient is currently undergoing chemotherapy for right-sided lung cancer with metastasis to the back. We will continue with intravenous cefepime. She has been given a dose of Granix. We will continue with intravenous fluids. Place her on a neutropenic diet and neutropenic precautions. Consult Dr. Camilla Mccoy. 2. Toxic encephalopathy, more than likely secondary to her p.o. morphine. Her head CT was negative per emergency department report. She did have a brain MRI done in [place]. We do not have those results. She is currently alert and oriented x4, not complaining of any pain besides some constipation. 3. Constipation. We will try to initiate her on a bowel regimen. Continue with some intravenous hydration. 4. Clinical dehydration. She does appear to be clinically dehydrated. She was given a 2 L fluid bolus in the emergency department. We will continue with intravenous fluids. 5. Known coronary artery disease. No complaints of chest pain. 6. Hypertension. 7. Diffuse large B-cell lymphoma history. Aware. 8. IVIG deficiency. Aware. 9. Recurrent urinary tract infections previously. Patient has been on low-dose Levaquin at home. She should be covered with the cefepime. 10. Chronic kidney disease, stable. 11. Mild hyperkalemia. We will recheck her potassium in the a.m. 12. Mild hyponatremia. We will continue with intravenous fluids. Recheck her sodium in the morning. 13. Further recommendation to follow physician evaluation, laboratory and diagnostic data. Dictated by SNEHA Chapman for Justino Barnett MD cc: MD Camilla Kelly MD Adnan A. Seljuki, MD
[2019-06-09] MEDS ORDERED: VENTOLIN HFA INH PRN (18:32)
[2019-06-09] MEDS ORDERED: LIORESAL PO PRN (18:32)
[2019-06-09] MEDS: LYRICA PO SCH (21:52)
[2019-06-09] MEDS: CALTRATE 600 PO SCH (21:52)
[2019-06-09] MEDS: LIPITOR PO SCH (21:52)
[2019-06-09] MEDS: XANAX PO SCH (21:52)
[2019-06-09] MEDS: LOPRESSOR PO SCH (21:52)
[2019-06-09] MEDS: ALBUTEROL NEB INH SCH (23:07)
--- NOTE | 2019-06-10 01:20 | PROGRESS NOTE ---
DATE: 06/09/2019 The patient is a 68-year-old female with history of B-cell lymphoma getting chemotherapy. She presents with hypoxia and fever. She was also found to be neutropenic and she was admitted for neutropenic fever. Dr. Estrella is her regular doctor, will be consulted. She is fairly encephalopathic, but she seems to be better. We will continue to monitor her. Continue broad- spectrum antibiotics and follow. She is on cefepime and consider vancomycin. I have also started Neupogen for her neutropenia. This is a [id number] encounter note with SNEHA Chapman. cc: Justino Barnett MD
[2019-06-10] MEDS: ZYVOX 600 MG/D5W 600 MG/300 ML IVPB IV SCH ×2 (02:45→15:02)
[2019-06-10] MEDS: MAXIPIME 2 GM in NS 100 ML IV SCH ×2 (04:45→15:02)
[2019-06-10] MEDS: NS 1,000 ML IV SCH ×2 (05:00→19:11)
[2019-06-10 07:33] LABS: EOS# 0.09 X1000 (0.0-0.7); EOS% 5.4 % (0.0-10.0); HEMOGLOBIN 8.6 g/dL (12.0-16.0); LYMPH# 0.54 X1000 (1.2-3.4); LYMPH% 32.5 % (20.5-51.1); MCH 29.2 PG (27-31); MCHC 30.7 g/dL (33-37); MCV 94.9 FL (81-99); MONO# 0.32 X1000 (0.11-0.59); MONO% 19.3 % (1.7-9.3); MPV 12.7 FL (7.4-10.4); NEUT# 0.71 X1000 (1.4-6.5); NEUT% 42.8 % (42.2-75.2); PLT 58 X1000 (130-400); RBC 2.95 XMIL (4.2-5.4); RDW 14.1 % (11.5-14.5); WBC 1.66 X1000 (4.8-10.8)
--- NOTE | 2019-06-10 07:50 | Diag Imaging Result Doc PS360 ---
EXAM: CHEST-PORTABLE INDICATION: follow up TECHNIQUE: One view COMPARISON: 06/09/2019 FINDINGS: The ovoid masslike opacity with surrounding infiltrate involving the right lower lobe is grossly stable. No new consolidation is identified. The left central line is in stable position. Cardiac silhouette is stable. IMPRESSION: Stable chest. Electronically signed by Erik Levin 06/10/2019 7:48 AM
[2019-06-10 07:51] LABS: AGAP 6; ALB/GLOB RATIO 1.3; ALBUMIN 2.8 g/dL (3.5-5.0); ALKALINE PHOSPHATASE 90 U/L (32-104); BUN 14 mg/dL (8-22); CALCIUM 8.7 mg/dL (8.8-10.2); CHLORIDE 105 mmol/L (98-107); COSMO 283; CREATININE 0.8 mg/dL (0.5-0.9); ESTIMATED GFR > 60; GLUCOSE 84 mg/dL (70-104); GOT 12 U/L (10-30); GPT 6 U/L (10-36); MAGNESIUM 1.8 mg/dL (1.5-2.7); POTASSIUM 4.7 mmol/L (3.5-5.1); SODIUM 142 mmol/L (136-145); TCO2 31 mmol/L (25-35); TOTAL BILIRUBIN 0.35 mg/dL (0.20-1.00)
[2019-06-10] MEDS ORDERED: CELEXA PO SCH (09:00)
[2019-06-10 09:05] LABS: BANDS 12 % (0-1); HYPOCHROM 1+; LYMPHS 32 % (21-51); MONO 20 % (1-9); SEGS 28 % (42-75)
[2019-06-10] MEDS: CALTRATE 600 PO SCH ×2 (10:15→21:41)
[2019-06-10] MEDS: PROTONIX PO SCH (10:15)
[2019-06-10] MEDS: PREDNISONE PO SCH (10:15)
[2019-06-10] MEDS: FOLIC ACID PO SCH (10:15)
[2019-06-10] MEDS: PLAVIX PO SCH (10:15)
[2019-06-10] MEDS: VITAMIN D PO SCH (10:15)
[2019-06-10] MEDS: ASPIRIN PO SCH (10:15)
[2019-06-10] MEDS: COLBENEMID PO SCH (10:15)
[2019-06-10] MEDS: LOPRESSOR PO SCH ×2 (10:15→21:41)
[2019-06-10] MEDS: XANAX PO SCH ×2 (10:15→21:41)
[2019-06-10] MEDS: SYNTHROID PO SCH (10:15)
[2019-06-10] MEDS: GRANIX SUBQ SCH (10:16)
--- NOTE | 2019-06-10 15:35 | PROGRESS NOTE ---
DATE: 06/10/2019 SUBJECTIVE: Patient has no major complaints. OBJECTIVE: Vital Signs: Blood pressure 114/55, heart rate of 89, respiratory rate of 18, temperature 98.1 degrees, 100% on room air. Cardiovascular: Regular rate and rhythm. Pulmonary: Bilateral breath sounds clear to auscultation. Gastrointestinal: Abdomen soft, nontender, nondistended. Bowel sounds are positive. LABORATORY DATA: White count up to 1.6, hemoglobin and hematocrit 8 and 28, platelets of 58,000. Neutrophil percentage because before she did not have anything. ASSESSMENT: 1. Neutropenia. She is on Granix doing well. 2. Toxic encephalopathy. She seems to be doing okay. 3. Constipation. She seems to be doing okay, as well. 4. Diffuse large B-cell lymphoma, status post treatment. We will continue to monitor. DISPOSITION: Pending clinical status but she will be here probably another day or 2. cc: Justino Barnett MD
[2019-06-10] MEDS: ALBUTEROL NEB INH SCH (21:34)
[2019-06-10] MEDS: LIPITOR PO SCH (21:41)
[2019-06-10] MEDS: LYRICA PO SCH (21:41)
[2019-06-11] MEDS: NS 1,000 ML IV SCH ×2 (00:52→03:55)
[2019-06-11] MEDS: ZYVOX 600 MG/D5W 600 MG/300 ML IVPB IV SCH (01:40)
[2019-06-11] MEDS: MAXIPIME 2 GM in NS 100 ML IV SCH (03:53)
[2019-06-11 08:01] LABS: EOS% 1.8 % (0.0-10.0); HEMATOCRIT 30.1 % (37.0-47.0); HEMOGLOBIN 9.2 g/dL (12.0-16.0); IMM GRAN# 0.05 X1000 (0.0-0.04); IMM GRAN% 0.9 % (0.0-0.5); LYMPH# 1.13 X1000 (1.2-3.4); LYMPH% 20.5 % (20.5-51.1); MCH 29.2 PG (27-31); MCHC 30.6 g/dL (33-37); MCV 95.6 FL (81-99); MONO# 0.61 X1000 (0.11-0.59); MONO% 11.1 % (1.7-9.3); MPV 13.1 FL (7.4-10.4); NEUT# 3.61 X1000 (1.4-6.5); NEUT% 65.7 % (42.2-75.2); PLT 59 X1000 (130-400); RBC 3.15 XMIL (4.2-5.4); RDW 14.1 % (11.5-14.5)
[2019-06-11 08:59] LABS: ANISOCYTOSIS 1+; BANDS 7 % (0-1); EOS 2 % (1-10); LYMPHS 27 % (21-51); MONO 5 % (1-9); SEGS 55 % (42-75)
[2019-06-11 09:00] LABS: LARGE PLATELETS OCCASIONAL
[2019-06-11] MEDS: PREDNISONE PO SCH (09:36)
[2019-06-11] MEDS: CALTRATE 600 PO SCH (09:36)
[2019-06-11] MEDS: ASPIRIN PO SCH (09:36)
[2019-06-11] MEDS: PROTONIX PO SCH (09:36)
[2019-06-11] MEDS: FOLIC ACID PO SCH (09:36)
[2019-06-11] MEDS: VITAMIN D PO SCH (09:36)
[2019-06-11] MEDS: GRANIX SUBQ SCH (09:36)
[2019-06-11] MEDS: COLBENEMID PO SCH (09:36)
[2019-06-11] MEDS: SYNTHROID PO SCH (09:37)
[2019-06-11] MEDS: PLAVIX PO SCH (09:37)
[2019-06-11] MEDS: XANAX PO SCH ×2 (09:37→09:41)
[2019-06-11] MEDS: LOPRESSOR PO SCH (09:39)
[2019-06-11] MEDS ORDERED: MAXIPIME 2 GM/NS 2 GM/100 ML IVPB IV SCH (09:45)
[2019-06-11 11:39] VITALS: BP 119/67
--- NOTE | 2019-06-12 14:12 | DISCHARGE SUMMARY ---
ADMISSION DATE: 06/09/2019 DISCHARGE DATE: 06/11/2019 PRIMARY CARE PROVIDER: Dr. Pena. ONCOLOGIST: Dr. Camilla Mccoy PERTINENT PROCEDURES: 1. Chest x-ray stable chest. 2. Head CT minimal chronic ischemic changes. No evidence of acute disease. DISCHARGE DIAGNOSES: 1. Neutropenic fever, now resolved. The patient was treated with IV cefepime and Granix. We will be discharged on p.o. Cefdinir and Augmentin. Continue to follow up with Dr. Camilla Mccoy. 2. Toxic encephalopathy, improved. 3. Constipation, stable. 4. Diffuse large B-cell lymphoma status post chemotherapy. The patient will continue to follow up with Dr. Camilla Mccoy. 5. Clinical dehydration, resolved. 6. Mild hyperkalemia, resolved. 7. Acute kidney injury, resolved. HOSPITAL COURSE: Briefly, Ms. Shi is a 68-year-old female with a past medical history of diffuse B-cell lymphoma status post chemotherapy that was in remission, and has been under the care of Dr. Camilla Mccoy. However, she recently found out that she had a right-sided lung cancer with metastasis to the back and had started chemotherapy over a week ago, and was placed on morphine, but had stopped the morphine secondary to hallucination and mental status changes. She was restarted on her morphine last . She came to the ED after reporting being out of her head, and feeling like she had been hallucinating. Also, reported cough, fever, chills, shortness of breath, sore throat, dry mouth, and abdominal pain with constipation. Workup in the ED revealed neutropenic fever. She was initiated on IV cefepime as well as Granix, and placed on neutropenic precautions and a neutropenic diet. A courtesy consult for Dr. Mccoy. She did undergo a head CT, and did not show anything acute. We withheld her morphine. Her mental status improved over the course of her hospitalization as well as her neutropenic fever. We will be discharging her back home today with home health. VITAL SIGNS: Temperature is 98.4 degrees, heart rate 90, respirations 16, blood pressure 119/67, and O2 is 93% on room air. DISCHARGE DIET: Healthy heart. DISCHARGE MEDICATIONS: 1. Lipitor 20 mg p.o. at bedtime. 2. Lyrica 150 mg p.o. at bedtime. 3. Albuterol 2.5 mg inhaled at bedtime. 4. Arthritis Pain Relief 650 mg tablet 1 to 2 tablets p.o. q.8 hours p.r.n. 5. Aspirin 81 mg p.o. daily. 6. Baclofen 10 mg p.o. b.i.d. 7. Calcium 600 mg p.o. b.i.d. 8. Celexa 20 mg p.o. daily. 9. ColBenemid 1 each p.o. daily. 10. Folic Acid 1 mg p.o. daily. 11. Prednisone 1 mg 2 tablets p.o. daily. 12. Protonix 40 mg p.o. daily. 13. Synthroid 50 mcg p.o. daily. 14. Tylenol Sinus congestion 1 tab p.o. b.i.d. 15. Albuterol sulfate 18 g inhaled daily p.r.n. 16. Vitamin D 5000 units p.o. daily. 17. Xanax 0.5 mg p.o. b.i.d. 18. Cefdinir 300 mg p.o. b.i.d. for 14 caplets. 19. Levaquin 750 mg p.o. daily for 8 caplets. 20. Lopressor 50 mg p.o. b.i.d. 21. Plavix 75 mg p.o. daily. FOLLOW-UP: Mrs. Shi is being discharged back home with home health. She is to follow up with her primary care provider, Dr. Pena, as well as her oncologist Dr. Camilla Mccoy. She can return to the ED or call 911 for any worsening of symptoms. Dictated by SNEHA Chapman for Koffi Mccann MD Addendum: Patient seen and examined by myself. Agree with SNEHA note. It reflects my assessment and plan. Patient is being discharged in stable condition to home. Follow up with PCP in a week. cc: Koffi Mccann MD [facility]
--- NOTE | 2019-06-13 05:46 | HEMO/ONC CONSULTATION ---
DATE: 06/10/2019 CONSULTATION REQUESTED BY: Hospitalist service. HISTORY OF PRESENT ILLNESS: Ms. Shi is a 68-year-old, female, who is known to us as we are currently treating her for non-small cell lung cancer. She is status post cycle 1, treated with Taxol carboplatin on 06/02/2019. We also see the patient for hypogammaglobulinemia and give her monthly IVIG. The patient reports to the [facility] via ambulance after having hallucinations and acute mental status changes. Upon presentation, she had O2 saturations in the 80s. She is also found to be febrile and neutropenic. She was found to have a urinary tract infection. She has now been admitted to the hospital and is on IV antibiotics. She is feeling much improved since her presentation. Her daughter is at bedside. PAST MEDICAL HISTORY: 1. Ischemic cardiomyopathy. 2. History of 2 previous WV's with stent placement. 3. Lupus. 4. Hypertension. 5. Dyslipidemia. 6. Diffuse large B-cell lymphoma, status post chemotherapy. She is over 10 years in remission. 7. Vitamin B 12 deficiency. 8. Diverticulitis. 9. Recurrent UTIs. 10. Newly diagnosed right-sided lung cancer and status post cycle 1 of Keytruda, carbo and Taxol on 06/02/2019. 11. Hypogammaglobulinemia receiving monthly IVIG. PAST SURGICAL HISTORY: 1. Right total hip replacement. 2. Bilateral cataract removal. 3. Cardiac stents placed x4. 4. Left-sided lithotripsy. 5. Left-sided port placement. SOCIAL HISTORY: The patient quit smoking back around 1999, but she previously had a 2 pack per day smoking history. She denies any current use of alcohol or illicit drugs. She does use home O2. She lives with her daughter. FAMILY HISTORY: Colon cancer, breast cancer, alcoholism, osteoporosis, lung cancer, hypertension, hyperlipidemia are all present in the patient's family history. REVIEW OF SYSTEMS: A 12 point review of systems has been completed as negative, except for what is expressed in the HPI. PHYSICAL EXAMINATION: Vital Signs: Temperature 98.1 degrees, heart rate 89, respirations 18, blood pressure 114/55, O2 saturation 100% on room air. General: This is a female sitting in her hospital bed. Her daughter is at bedside. She is in no acute distress. Head: Head normocephalic, atraumatic. Eyes: Pupils equal, round, reactive. Ears, nose, throat, neck, and mouth: Oral mucosa appears to be normal. Gross auditory acuity is intact. Cardiovascular: S1, S2 heard. No murmurs, gallops, rubs appreciated. Respiratory: Chest is clear with coarse breath sounds. Gastrointestinal: Abdomen is soft. Musculoskeletal: No bony abnormalities. Skin: No rashes. Neurologic: Patient is alert and oriented at this time. She has no focal motor deficits. Extremities: She does have some trace bilateral extremity edema noted. LABS AND STUDIES: White blood cells are 1.66 today, hemoglobin 8.6, platelet count 58, absolute neutrophil count is 710. Urine culture shows no growth and the blood culture has a contaminant, but no other gross at this time. ASSESSMENT AND PLAN: 1. Neutropenic fever. The patient's granulocyte count has improved. We will continue Granix. Continue broad-spectrum antibiotics. Monitor cultures. Continue neutropenic precautions. 2. Toxic encephalopathy. Head CT was found to be negative. She has previously also had a brain MRI, which was found to be negative. Her symptoms have improved during this hospitalization. We will continue to monitor closely. 3. Dehydration. Continue with intravenous fluids per the primary team. 4. Lung cancer. Patient is status post treatment on 06/02/2019. I will have her follow up in the clinic and resume therapy again once she is recovered from her acute illness. 5. IVIG deficiency. We continue to provide her monthly IVIG in our office. She should be due later this week for her monthly infusion. We want to thank you for consulting us on Ms. Shi. Dictated by MIGUEL Maguire for Camilla Mccoy MD cc: Camilla Mccoy MD I have seen and examined the patient and the above note reflects my history, physical exam and assessment and plan. Camilla Mccoy MD [facility]
== END 2019-06-11 14:53 | disposition home health service (06) | DRG 808 ==
LOC: SUPCPDRO → ED 02:53 → EDIPHOLD 10:20 → SUATTDRO 10:20 → 3N 13:06
PROVIDERS: ATTEND Internal Medicine